=== PATIENT | male | born 1940 | race Caucasian/White ===

== ENCOUNTER 2019-01-04 05:56 | Inpatient (IN) ==
[2019-01-04] MEDS ORDERED: 0.9 % Sodium Chloride 1,000 ML IVC SCH (08:00)
[2019-01-04] MEDS ORDERED: Morphine Sulfate Oral CONC 10 MG/0.5 ML ORAL.SYG SL PRN (08:00)
[2019-01-04] MEDS ORDERED: Ondansetron 4 MG/2 ML VIAL IVP PRN (08:00)
--- NOTE | 2019-01-04 08:54 | Anesthesia Evaluation PreOp ---
Date of Encounter: 01/04/19 Time of Encounter: 11:47 - Past History Planned Operation: Lap. 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 HX Other Medical History: Thyroid (Hypo) Anesthesia History: No Prior Anesthetic Complications, Past Anesthesia (hernia) Alcohol Use: none Drug use: none Medications and Allergies Cholecalciferol (D-3) [Vitamin D] 5,000 unit PO DAILY 03/14/16 [History] Levothyroxine [Synthroid] 100 mcg PO 0630 03/14/16 [History] Multivitamin [Multi-Day Vitamins] 1 each PO DAILY 03/14/16 [History] Allergy/AdvReac Type Severity Reaction Status Date / Time Penicillins [PCN] Allergy See Verified 01/04/19 04:27 Comments Sulfa (Sulfonamide Allergy See Verified 01/04/19 04:27 Antibiotics) Comments - Meds/Allergy Pre-op Review Medications Reviewed: Yes Allergies Reviewed: Yes Beta Blockers on Current Med List: No Anesthesia Results - Labs Laboratory Tests 01/04/19 01/04/19 01/04/19 04:54 04:54 04:54 WBC 8.4 Hgb 13.0 Hct 38.5 INR 1.1 Sodium 138 Potassium 3.8 Chloride 104 Carbon Dioxide 25 BUN 22 Creatinine 1.17 - Imaging EKG: report reviewed (NSR) Anesthesia Exam Vital Signs/O2 Sat, Most Current Temp Pulse Resp BP Pulse Ox 97.3 F L 47 16 130/58 95 01/04/19 07:28 01/04/19 07:28 01/04/19 07:28 01/04/19 07:28 01/04/19 07:28 NPO (# of Hours): > 8 hrs Pain Scale: 0 Pain Scale Used: Numeric (1 - 10) - HEENT Pupil (Motor): Pupils equal, EOMI Mallampati: III Teeth: Normal Oral Opening: Greater than 3 - HOTEL BAGGAGE HANDLER LOC: Oriented HOTEL BAGGAGE HANDLER Motor: Normal RUE, Normal LUE, Normal RLE, Normal LLE, Normal Face HOTEL BAGGAGE HAND[employer]ER Sensory: Normal: RUE, LUE, RLE, LLE, Face - Cardiac Rhythm: Regular Murmur: None JVD: No Carotid Bruit: No - Pulmonary Breath Sounds: bilateral Clear Respiratory Effort: Symmetrical Anesthesia Assess/Plan ASA Score: 2 Level of consciousness: Cooperative, Oriented, Tranquil Anesthetic Plan: General Autologous Blood: Yes Monitoring Plan: Standard Monitors Recovery Plan: PACU
[2019-01-04] MEDS ORDERED: Pantoprazole 40 MG VIAL IVP SCH (09:00)
[2019-01-04] MEDS ORDERED: *HR* Propofol 200 MG/20 ML VIAL IVP ONE (10:20)
[2019-01-04] MEDS ORDERED: *HR* FentaNYL (PF) 100 MCG/2 ML VIAL ONE (10:20)
[2019-01-04] MEDS ORDERED: Ondansetron 4 MG/2 ML VIAL ONE (10:22)
[2019-01-04] MEDS ORDERED: *HR* Rocuronium Bromide 50 MG/5 ML VIAL ONE (10:22)
[2019-01-04] MEDS ORDERED: Lidocaine HCL 4 ML Topical Solution (Laryng-O-Jet Kit Sterile Pak) TP ONE (10:22)
[2019-01-04] MEDS ORDERED: Lidocaine -MPF 2% 2 ML VIAL ONE (10:22)
--- NOTE | 2019-01-04 10:37 | Acute Care Surgery H&P ---
Date of Encounter: 01/04/19 Time of Encounter: 10:37 Assessment and Plan (1) Biliary colic Current Visit: Yes Status: Acute The assessment and plan as outlined above was discussed with the patient and/or family members who expressed understanding and agreement. All questions were answered. I explained to the patient and family members that I personally reviewed the CT scan images and report. I think that he is having intractable pain secondary to biliary colic and I think it would be appropriate to proceed with a laparoscopic cholecystectomy. Risks and benefits have been discussed with the patient and family and they agree to the above plan. History of Present Illness Chief complaint: Right upper abdominal pain HPI: Mr. Mueller is a 78 year old male past medical history significant for hypothyroidism and allergies who states that yesterday he had the onset of right upper quadrant abdominal pain seemed to radiate to the epigastrium. He currently describes his pain as a severe dull pain that is radiating neck and forth between the epigastrium and right upper flank. As the did have nausea but denies any vomiting and he denies any history diarrhea or constipation. On average he has a bowel movement every other day and his last bowel movement was yesterday. Because of the significant and progressive abdominal pain he presented himself to [facility] emergency room for evaluation. A CT scan of the abdomen and pelvis was performed which demonstrated a distended gallbladder with gallstones but no pericholecystic fluid. He describes the pain currently as persistent in nature. Past Med Surg Social Fam HX - Past Medical History Medical history: thyroid disease Additional medical history: ENVIROMENTAL ALLERGIES Psychiatric history: no psych history - Past Surgical History Surgical History: cataract, herniorrhaphy (Left inguinal, performed by Dr. Skaggs 3 years ago), orthopedic, other (Bilateral knee arthorscopy), other Additional surgical history: SCOPIC SURGERY BOTH KNEES - Social History Smoking Status: Never smoker Smokeless Tobacco Status: No Alcohol use: none Drug use: none - Family History Grandfather Hx Family Cancer: Yes (oral cancer.) Medications and Allergies Cholecalciferol (D-3) [Vitamin D] 5,000 unit PO DAILY 03/14/16 [History] Levothyroxine [Synthroid] 100 mcg PO 0630 03/14/16 [History] Multivitamin [Multi-Day Vitamins] 1 each PO DAILY 03/14/16 [History] Allergy/AdvReac Type Severity Reaction Status Date / Time Penicillins [PCN] Allergy See Verified 01/04/19 04:27 Comments Sulfa (Sulfonamide Allergy See Verified 01/04/19 04:27 Antibiotics) Comments Review of Systems All systems PM: reviewed and no additional remarkable complaints except as st ated All systems PM: The remainder of the systems were reviewed and are negative General Surgery Exam Initial Vital Signs Temp Pulse Resp BP Pulse Ox 97.3 F L 47 16 130/58 95 01/04/19 07:28 01/04/19 07:28 01/04/19 07:28 01/04/19 07:28 01/04/19 07:28 - General physical appearance moderate pain - Eyes PERRL, normal ocular movement - Respiratory normal expansion, normal respiratory effort, clear to auscultation - Cardiovascular Cardiovascular exam: Present: RRR, no murmurs/rubs/gallops - Abdomen Abdomen general surgery: Present: bowel sounds present, soft, tender (Tenderness is noted in the bilateral upper quadrant but his most significant pain is located at the epigastrium and right upper quadrant. No palpable masses) - Neurologic Present: CN 2-12 grossly intact - Musculoskeletal Present: other (No clubbing, cyanosis, or edema) - Psychiatric Psychiatric general surgery: Present: A&Ox3, oriented to person, oriented to place, oriented to time Results - Labs All other labs normal. - Imaging CT scan - abdomen: report reviewed, image reviewed (I personally reviewed the CT scan images and report. There is a distended gallbladder with gallstones but no free air or free fluid. No abscesses identified. Colonic diverticulosis also identified.)
[2019-01-04] MEDS ORDERED: Bupivacaine/EPI 1:200k 0.5%PF 30 ML VIAL ONE (11:28)
[2019-01-04] MEDS ORDERED: Bupivacaine/EPI 1:200k 0.25%PF 30 ML VIAL ONE (11:29)
[2019-01-04] MEDS ORDERED: Ondansetron 4 MG/2 ML VIAL IVP ONE (11:37)
[2019-01-04] MEDS ORDERED: *HR* Promethazine 25 MG/ML VIAL IVP PRN (11:37)
[2019-01-04] MEDS ORDERED: *HR* HYDROmorphone (PF) 1 MG/ML SYRINGE IVP PRN (11:37)
[2019-01-04] MEDS ORDERED: *HR* OxyCODONE Immed Rel 5 MG TABLET PO PRN (11:37)
[2019-01-04] MEDS ORDERED: *HR* Labetalol 20 MG/4 ML SYRINGE IVP PRN (11:37)
[2019-01-04] MEDS ORDERED: Acetaminophen IV 1,000 MG/100 ML INFUS..BTL ONE (11:54)
[2019-01-04] MEDS ORDERED: levoFLOXacin 500 MG/100 ML 500 MG/100 ML BAG IVPB ONE (11:54)
[2019-01-04] MEDS ORDERED: MetroNIDAZOLE 500 MG/100 ML 500 MG/100 ML BAG IVPB ONE (11:54)
[2019-01-04] MEDS ORDERED: EPHEDrine 50 MG/ML VIAL ONE (12:20)
[2019-01-04] MEDS ORDERED: *HR* PHENYLEPHRINE 1,000 MCG/10 ML SYRINGE IVP ONE (12:24)
[2019-01-04] MEDS ORDERED: Dexamethasone 4 MG/ML VIAL ONE (12:26)
--- NOTE | 2019-01-04 12:48 | Operative Note ---
Date of procedure: 01/04/19 Pre-op diagnosis: Biliary colic Post-op diagnosis: other (Acute cholecystitis) Procedure: Laparoscopic cholecystectomy Anesthesia: BELTRAN Surgeon: Joshua Russ Was there an event marketing assistant present: No Estimated blood loss (cc): 25 Specimen: gallbladder and contents Condition: stable Disposition: PACU Procedure in Detail: Date of surgery: 01/04/19 After properly identifying the patient, the patient was brought to the operating room and placed in the supine position. After proper IV sedation was achieved followed by general endotracheal intubation, the patient's abdomen was prepped and draped in normal sterile fashion. A timeout was performed noting the patient's name and type of procedure to be performed. Half percent Marcaine solution was used to infiltrate the epidermal, dermal, and subcutaneous tissue just above the level of the umbilicus. An 11 blade scalpel was used to make an incision in this area down to the rectus fascia into the abdomen was entered. A 12 mm port was placed in the incision and the abdomen was insufflated with carbon dioxide. A laparoscopic camera was placed to the port which showed no injury to the intra-abdominal organs upon entry. A subxiphoid 5 mm port and a right subcostal margin 5 mm port were then placed under direct camera visualization after both of these areas were first infiltrated with half percent Marcaine. The patient was placed in a reverse Trendelenburg position and the gallbladder was visualized which demonstrated a distended and mildly erythematous gallbladder consistent with acute cholecystitis. A laparoscopic needle decompression was used to withdraw approximately 120 mL of lightly bilious tinged fluid. The gallbladder was then retracted superiorly with a nontraumatic grasper. Some omental adhesions were dissected with Bovie cauterization blunt dissection. Some mildly inflamed lymphatic tissue were carefully dissected away from the infundibulum and cystic duct with blunt dissection. The cystic duct and cystic artery were then further isolated, clipped with laparoscopic clips, and incised laparoscopic scissors. The gallbladder was carefully dissected off the gallbladder fossa with Bovie cauterization while Bovie cauterization was used to maintain hemostasis. Once the gallbladder was dissected free it was removed from the abdomen via an Endobag. Reinspection of the right upper quadrant demonstrated maintenance of hemostasis and the right upper quadrant was copiously irrigated with normal saline solution. All ports are then removed from the abdomen after the abdomen was desufflated. The rectus fascia for the supraumbilical incision was reapproximated with a [id number] 0 Vicryl suture. The subcutaneous tissue was reapproximated with a 3-0 Vicryl suture and the epidermal and dermal layers for the remaining incisions were closed with 4-0 Monocryl sutures. Needle, sponge, and ischemic counts were correct 2 and the incisions were covered with Steri-Strips and Band-Aids. The patient was aroused from IV sedation, extubated in the operating room without complication, and transported to the recovery room in stable condition.
[2019-01-04] MEDS ORDERED: Ringers Solution, Lactated 1,000 ML ONE (13:10)
--- NOTE | 2019-01-04 13:32 | Anesthesia Evaluation Post Op ---
Date of Encounter: 01/04/19 Time of Encounter: 13:31 - Vital Signs Vital Signs: Vital Signs/O2 Sat, Most Current Temp Pulse Resp BP Pulse Ox 98.4 F 93 17 140/71 97 01/04/19 13:01/04/19 13:01/04/19 13:01/04/19 13:01/04/19 13:21 - Lungs Lungs: Clear Ascult./Percussion - Airway Airway: Non-obstructed - Cardiovascular Regular Rate - Mental Status Mental Status: Alert & Oriented, Answers Appropriately - Pain Pain Scale: 0 Pain Scale used: Numeric (1 - 10) - Nausea Vomiting Nausea Vomiting: Not Present - Hydration Hydration: Ice chips, Has not voided - Discharge PostOp Status: Transfer Patient to floor
[2019-01-04] MEDS: 0.9 % Sodium Chloride 1,000 ML IVC SCH (14:04)
[2019-01-04] MEDS: Morphine Sulfate Oral CONC 10 MG/0.5 ML ORAL.SYG SL PRN ×2 (15:00→21:01)
[2019-01-04] MEDS: MetroNIDAZOLE 500 MG/100 ML 500 MG/100 ML BAG IVPB SCH ×2 (15:01→23:20)
[2019-01-05] MEDS: 0.9 % Sodium Chloride 1,000 ML IVC SCH (03:57)
[2019-01-05] MEDS: Pantoprazole 40 MG VIAL IVP SCH (07:45)
[2019-01-05] MEDS: Morphine Sulfate Oral CONC 10 MG/0.5 ML ORAL.SYG SL PRN (07:45)
--- NOTE | 2019-01-05 11:38 | AcuteCareSurgery Progress Note ---
<DanyelMahnaz Anita - Last Filed: 01/05/19 11:36> Date of Encounter: 01/05/19 Time of Encounter: 07:45 - Assessment and Plan (1) Biliary colic Current Visit: Yes Status: Acute Date of procedure: 01/04/19 Pre-op diagnosis: Biliary colic Post-op diagnosis: other (Acute cholecystitis) Procedure: Laparoscopic cholecystectomy Anesthesia: GETA Surgeon: Joshua Russ POD #1 as above. He reports he is sore and is not able to get OOB accordingly. He stated difficulty getting up to urinate (aprox 100 ml dark urine noted in urinal). His VSS and he is afebrile. He states he lives alone and has no one who can help him during the day. We will consult PT/OT for mobilization and d/c planning. Plan: Continue supportive care and discomfort management while awaiting full return of bowel function add ice pack add scheduled Ofirmev continue PRN pain medication bladder scan Stat, bedside RN to call [employer] CONSULTANT with results Continue G.I. and DVT prophylaxis Incentive spirometry 10 times every hour while awake Out of bed to chair TID, do not offer meal trays while in the bed PT/OT and ambulate Activity as tolerated Apply ice 20 minutes on 20 minutes off as needed continue IV antibiotics stop IV fluids regular diet DC planning in the next 24 to 48 hours pending above (2) Weakness Current Visit: Yes Status: Acute see above Subjective Patient reports: still having pain, no flatus, no bowel movement, afebrile Narrative: reports difficulty urinating and getting out of bed because of pain. Lives alone. States he doesn't have anyone who can help him throughout the day. Objective Vital Signs - Last 8 Hours Temp Pulse Resp BP Pulse Ox 01/05/19 10:54 98.5 F 58 22 121/64 95 01/05/19 07:09 98.4 F 60 16 113/57 94 01/05/19 03:46 98.0 F 60 15 98/53 93 Intake and Output 01/04/19 01/05/19 01/05/19 23:59 07:59 15:59 Intake Total 100 / 320 100 / 220 120 / 220 Output Total 300 / 400 100 / 400 Balance 100 / -105 -200 / -180 20 / -180 Intake: IV Fluids 100 / 200 100 / 100 Flagyl Premix 500 MG/100 ML 500 100 / 100 100 / 100 mg In 100 ml @ 100 mls/hr IVPB Q8HR [facility] Rx#:[id number] Oral 120 / 120 Output: Urine 300 / 400 100 / 400 Other: Meal Breakfast Percent of Meal Consumed 20% Weight 70.4 kg Patient Weight 01/05/19 23:59 Weight 70.4 kg - General physical appearance moderate distress, moderate pain - ENT atraumatic, normocephalic - Neck Neck exam: trachea midline - Respiratory normal expansion, normal respiratory effort, clear to auscultation - Cardiovascular Cardiovascular exam: Present: RRR - Abdomen Abdomen: Present: soft, distended, tender (expected postoperative). Absent: bowel sounds present Hernia: none - Incision Incision: Present: clean and dry, intact - Integumentary no rash - Neurologic normal sensation - Musculoskeletal other (Guarded posture) - Psychiatric oriented to time, oriented to person, oriented to place Consult Discharge Plan - Plan Referrals: Danyel Ramos DO [Primary Care Provider] - <Eugene Glass - Last Filed: 01/05/19 13:57> Date of Encounter: 01/05/19 Objective Vital Signs - Last 8 Hours Temp Pulse Resp BP Pulse Ox 01/05/19 10:54 98.5 F 58 22 121/64 95 01/05/19 07:09 98.4 F 60 16 113/57 94 Intake and Output 01/04/19 01/05/19 01/05/19 23:59 07:59 15:59 Intake Total 100 / 320 100 / 340 240 / 340 Output Total 300 / 1000 700 / 1000 Balance 100 / -105 -200 / -660 -460 / -660 Intake: IV Fluids 100 / 200 100 / 100 Flagyl Premix 500 MG/100 ML 500 100 / 100 100 / 100 mg In 100 ml @ 100 mls/hr IVPB Q8HR [facility] Rx#:[id number] Oral 240 / 240 Output: Urine 300 / 1000 700 / 1000 Other: Meal Lunch Percent of Meal Consumed 5% # Voids 2 Weight 70.4 kg Patient Weight 01/05/19 23:59 Weight 70.4 kg - Attending Attestation I have personally performed a face to face evaluation on this patient. I have reviewed and agree with the care plan. History and Exam by me shows: The patient is seen and evaluated on morning rounds with the acute care surgery team. He had laparoscopic cholecystectomy and feels poorly today and feels like he is unable to ambulate adequately. We will plan physical therapy and occupat ional therapy evaluation. It is noted that he has a markedly dilated bladder with greater then 650 mL of urine. Flomax was started. Eugene Glass MD FACS
[2019-01-05] MEDS: Acetaminophen IV 1,000 MG/100 ML INFUS..BTL IVPB SCH ×2 (12:55→17:17)
[2019-01-06] MEDS: Acetaminophen IV 1,000 MG/100 ML INFUS..BTL IVPB SCH ×5 (00:52→23:35)
[2019-01-06 05:18] LABS: Basophils % 0.2 %; Eosinophils % 0.1 %; Hematocrit 38.9 % (37.5-50.1); Hemoglobin 12.7 g/dL (12.9-16.9); Immature Granulocytes % 0.6 % (0-4); Lymphocytes # 1.3 K/mcL (0.6-4.6); Lymphocytes % 8.3 %; Mean Corpuscular HGB Conc 32.6 g/dL (31.6-35.5); Mean Corpuscular Hemoglobin 31.1 pg (28.0-33.3); Mean Corpuscular Volume 95.1 fL (83.0-100.0); Monocytes # 1.5 K/mcL (0.0-1.3); Monocytes % 9.5 %; Neutrophils # 12.7 K/mcL (1.6-8.9); Platelet Count 278 K/mcL (140-400); Red Blood Count 4.09 M/mcL (4.19-5.50); Red Cell Distribution Width 14.1 % (11.5-14.5); Segmented Neutrophils % 81.3 %; White Blood Count 15.6 K/mcL (4.3-11.1)
[2019-01-06 05:42] LABS: BUN/Creatinine Ratio 17 (6-26); Blood Urea Nitrogen 18 mg/dL (8-23); Calcium 8.8 mg/dL (8.6-10.3); Carbon Dioxide 25 mEq/L (23-29); Chloride 104 mEq/L (98-107); Glucose 119 mg/dL (70-105); Osmolality,Calculated 283 (280-300); Potassium 3.8 mEq/L (3.5-5.1); Sodium 135 mEq/L (136-145); eGFR For African Americans > 60 (> 60); eGFR For Non-African Americans > 60 (> 60)
[2019-01-06] MEDS: Pantoprazole 40 MG VIAL IVP SCH (08:04)
[2019-01-06] MEDS ORDERED: Simethicone 80 MG TAB.CHEW PO STA (09:15)
[2019-01-06] MEDS: Metoclopramide 10 MG/2 ML VIAL IVP SCH ×3 (10:55→22:11)
--- NOTE | 2019-01-06 11:22 | AcuteCareSurgery Progress Note ---
<Mahnaz Montaño - Last Filed: 01/06/19 11:18> Date of Encounter: 01/06/19 Time of Encounter: 11:18 - Assessment and Plan (1) Biliary colic Current Visit: Yes Status: Acute Date of procedure: 01/04/19 Pre-op diagnosis: Biliary colic Post-op diagnosis: other (Acute cholecystitis) Procedure: Laparoscopic cholecystectomy Anesthesia: GETA Surgeon: Joshua Russ POD #2 as above. He reports abdominal distention and feeling uncomfortable but states the pain he had yesterday has resolved. He is sitting up right in the chair and ate approximately 1/4 of his breakfast stating he feels to bloated to eat any further. Acute abdominal series obtained and notes a moderate ileus (see below). His daughter is at bedside and encourages the patient to be active and uses incentive spirometer. Patient is reluctant to ambulate or use his incentive spirometer stating he just feels like he cannot do it. He is noted to have had acute urinary retention and had a Gonzales catheter placed. He states his abdominal discomfort is resolved. Plan: Continue supportive care and discomfort management while awaiting full return of bowel function ice pack scheduled Ofirmev continue PRN pain medication Continue gonzales Continue G.I. and DVT prophylaxis Incentive spirometry 10 times every hour while awake Out of bed to chair TID, do not offer meal trays while in the bed PT/OT and ambulate Activity as tolerated Apply ice 20 minutes on 20 minutes off as needed continue IV antibiotics CLD DC planning in the next 24 to 48 hours pending above (2) Postoperative ileus Current Visit: Yes Status: Acute Moderate POI noted on imaging. Pt is with abd distention, no bowel sounds, and frequent burping. No vomiting Decrease to clear liquid diet with protein supplement; If vomiting occurs, place NG Add reglan and simethicone ambulate OOB to chair TID Will resume IVF while decreased po intake (3) Weakness Current Visit: Yes Status: Acute see above (4) Acute urinary retention Current Visit: Yes Status: Acute Continue Gonzales catheter continue Flomax follow-up with urology as outpatient Objective Vital Signs - Last 8 Hours Temp Pulse Resp BP Pulse Ox 01/06/19 06:34 98.1 F 77 16 146/75 90 01/06/19 04:08 97.8 F 64 15 135/68 93 Intake and Output 01/05/19 01/06/19 01/06/19 23:59 07:59 15:59 Intake Total 100 / 540 100 / 100 Output Total 300 / 1300 600 / 600 Balance -200 / -760 -500 / -500 Intake: IV Fluids 100 / 300 100 / 100 Ofirmev 1,000 mg/100 ml 1,000 100 / 200 100 / 100 mg In 100 ml @ 400 mls/hr IVPB Q6HR [facility] Rx#:[id number] Output: Urine 300 / 1300 Catheter 600 / 600 Other: # Voids 1 Weight 70.1 kg Patient Weight 01/06/19 23:59 Weight 70.1 kg - Labs 01/06/19 04:38 01/06/19 04:38 Diabetes panel 01/06/19 Range/Units 04:38 Sodium 135 L (136-145) mEq/L Potassium 3.8 (3.5-5.1) mEq/L Chloride 104 (98-107) mEq/L Carbon Dioxide 25 (23-29) mEq/L BUN 18 (8-23) mg/dL Creatinine 1.06 (0.70-1.30) mg/dL Glucose 119 H (70-105) mg/dL Calcium 8.8 (8.6-10.3) mg/dL Calcium panel 01/06/19 Range/Units 04:38 Calcium 8.8 (8.6-10.3) mg/dL Pituitary panel 01/06/19 Range/Units 04:38 Sodium 135 L (136-145) mEq/L Potassium 3.8 (3.5-5.1) mEq/L Chloride 104 (98-107) mEq/L Carbon Dioxide 25 (23-29) mEq/L BUN 18 (8-23) mg/dL Creatinine 1.06 (0.70-1.30) mg/dL Glucose 119 H (70-105) mg/dL Calcium 8.8 (8.6-10.3) mg/dL Adrenal panel 01/06/19 Range/Units 04:38 Sodium 135 L (136-145) mEq/L Potassium 3.8 (3.5-5.1) mEq/L Chloride 104 (98-107) mEq/L Carbon Dioxide 25 (23-29) mEq/L BUN 18 (8-23) mg/dL Creatinine 1.06 (0.70-1.30) mg/dL Glucose 119 H (70-105) mg/dL Calcium 8.8 (8.6-10.3) mg/dL Consult Discharge Plan - Plan Referrals: [facility] [Provider Group] (Acute urinary retention; Gonzales in place) Danyel Ramos DO [Primary Care Provider] - (Appointment has been requested ) <Gila Frost - Last Filed: 01/06/19 11:39> Date of Encounter: 01/06/19 Objective Vital Signs - Last 8 Hours Temp Pulse Resp BP Pulse Ox 01/06/19 06:34 98.1 F 77 16 146/75 90 01/06/19 04:08 97.8 F 64 15 135/68 93 Intake and Output 01/05/19 01/06/19 01/06/19 23:59 07:59 15:59 Intake Total 100 / 540 100 / 100 Output Total 300 / 1300 600 / 600 Balance -200 / -760 -500 / -500 Intake: IV Fluids 100 / 300 100 / 100 Ofirmev 1,000 mg/100 ml 1,000 100 / 200 100 / 100 mg In 100 ml @ 400 mls/hr IVPB Q6HR [facility] Rx#:[id number] Output: Urine 300 / 1300 Catheter 600 / 600 Other: # Voids 1 Weight 70.1 kg Patient Weight 01/06/19 23:59 Weight 70.1 kg - Labs 01/06/19 04:38 01/06/19 04:38 Diabetes panel 01/06/19 Range/Units 04:38 Sodium 135 L (136-145) mEq/L Potassium 3.8 (3.5-5.1) mEq/L Chloride 104 (98-107) mEq/L Carbon Dioxide 25 (23-29) mEq/L BUN 18 (8-23) mg/dL Creatinine 1.06 (0.70-1.30) mg/dL Glucose 119 H (70-105) mg/dL Calcium 8.8 (8.6-10.3) mg/dL Calcium panel 01/06/19 Range/Units 04:38 Calcium 8.8 (8.6-10.3) mg/dL Pituitary panel 01/06/19 Range/Units 04:38 Sodium 135 L (136-145) mEq/L Potassium 3.8 (3.5-5.1) mEq/L Chloride 104 (98-107) mEq/L Carbon Dioxide 25 (23-29) mEq/L BUN 18 (8-23) mg/dL Creatinine 1.06 (0.70-1.30) mg/dL Glucose 119 H (70-105) mg/dL Calcium 8.8 (8.6-10.3) mg/dL Adrenal panel 01/06/19 Range/Units 04:38 Sodium 135 L (136-145) mEq/L Potassium 3.8 (3.5-5.1) mEq/L Chloride 104 (98-107) mEq/L Carbon Dioxide 25 (23-29) mEq/L BUN 18 (8-23) mg/dL Creatinine 1.06 (0.70-1.30) mg/dL Glucose 119 H (70-105) mg/dL Calcium 8.8 (8.6-10.3) mg/dL - Attending Attestation I examined this patient and my medical decision-making was reviewed with the BEHAVIORAL HEALTH SPECIALIST. I agree with the documented findings, disposition and treatment plan as described to the extent set forth below. Post-op Lap jason. Pt has persistent post-op ileus. Encourage increased acti vity. Will continue to treat supportively while awaiting bowel function.
[2019-01-06] MEDS ORDERED: *HR* Promethazine 25 MG/ML VIAL IVP PRN (11:24)
[2019-01-06] MEDS ORDERED: 0.9 % Sodium Chloride 1,000 ML IVC SCH (11:30)
[2019-01-06] MEDS: *HR* Heparin 5,000 UNIT/ML VIAL SQ SCH (18:02)
--- NOTE | 2019-01-06 18:40 | Acute Care Surgery Event Note ---
Date of Encounter: 01/06/19 Time of Encounter: 06:25 CTSP per nursing for 1) nausea and large emesis and 2) slurred speech. Pt exam is unremarkable. Will ask hospitalist to consult regarding neurologic complaint and obtain head CT without contrast. Also, will make NPO, start Reglan IV and place NGT to LIWS.
--- NOTE | 2019-01-07 00:09 | Internal Medicine Consult Note ---
Date of Encounter: 01/06/19 Time of Encounter: 22:30 - Assessment and Plan (1) Stroke-like symptoms Current Visit: Yes Status: Acute Assessment and plan: Acute CVA-type sx concerning for possible stroke. Effects of IVP Phenergan versus neurological basis. On exam, patient has no one-sided weakness, focal deficits, or pronator drift. Speech mildly slurred. Stat CT of the head/brain without contrast showed no acute intracranial abnormality. Stat MRI of the head/brain w/o contrast also showed no acute abnormality, specifically there is no acute infarct. Family concerned that these sx were exacerbated by pts. stress level regarding recent surgery and abdominal pain. Family is hesitant for pt. to have anti-anxiolytics d/t the fact that he takes no pain or anxiety medications historically. Will add low-dose of Ativan only if warranted and discussed w/family. Consider adding Neurology consult if pts. sx persist or worsen. Patient is high risk for further morbidity and complications d/t post-surgical status, neurologic changes requiring advanced imaging and testing to r/o neurologic basis, current leukocytosis, current nausea and vomiting requiring NG tube and nothing by mouth status, postoperative ileus, acute weakness, and acute urinary retention. Inpatient. (2) Postoperative ileus Current Visit: Yes Status: Acute Assessment and plan: Acute abdominal ileus according to 2 view x-ray of the abdomen on 01/06. Patient was on clear liquid diet but continued having N/V. NPO for now w/advance as tolerated. 0.9 IV fluids running at 125/hr currently. Consider CT of the abdomen/pelvis if sx persist or worsen. Monitor I&O. (3) Hypokalemia due to excessive gastrointestinal loss of potassium Current Visit: Yes Status: Acute Assessment and plan: Acute hypokalemia w/potassium of 3.4 likely d/t gastrointestinal loss. 20 mEq K rider with lidocaine ordered. Cardiac monitoring. EKG ordered. Monitor patient, VS, and f/u labs. Control N/V w/ Zofran and Reglan. (4) Nausea & vomiting Current Visit: Yes Status: Acute Assessment and plan: Acute nausea and vomiting s/p laparoscopic cholecystectomy. Clear liquid diet DCd and NPO ordered w/advance as tolerated. Phenergan DCd d/t pts. AMS/CVA-type sx post-administration. Phenergan added to pts. allergy list. Zofran and Reglan ordered. Monitor I&O. Pt. receiving 0.9 IV fluids @ 125/hr. Qualifiers: Vomiting type: cyclical vomiting Vomiting Intractability: non-intractable Qualified Code(s): G43.A0 - Cyclical vomiting, not intractable (5) Abdominal pain Current Visit: Yes Status: Acute Assessment and plan: Acute abdominal pain in epigastric area. S/p laparoscopic cholecystectomy on 01/04. 2V XR of the abdomen on 01/06 shows intraperitoneal free air consistent with history of recent abdominal surgery. Status post cholecystectomy. Moderately distended loops of small bowel with some air in the colon as well. Findings suggest a moderate ileus more likely than a distal small bowel ob struction. NG tube placed for N/V. NPO now w/advance as tolerated. Patient is opioid naive and family would like non-opioid medications trialed first. Monitor I&O. Qualifiers: Abdominal location: epigastric Qualified Code(s): R10.13 - Epigastric pain (6) Leukocytosis Current Visit: Yes Status: Acute Assessment and plan: Acute leukocytosis of unknown etiology: post-surgical reactive versus possible infective. Respiratory infection panel negative. U/A w/reflex micro and culture. Strep pneumoniae and legionella antigens ordered. Blood cultures x2 ordered. Monitor pt. and f/u labs closely for signs of increasing infection/sepsis criteria. Lactic acid 0.7. Qualifiers: Leukocytosis type: other Qualified Code(s): D72.828 - Other elevated white blood cell count (7) Weakness Current Visit: Yes Status: Acute Assessment and plan: Acute weakness, likely d/t poor intake in combination w/nausea and vomiting. Patient receiving 0.9 IV fluids @ 125/hr. Clear liquids DCd and NPO d/t recurrent N/V. Will advance diet as tolerated. Falls/safety precautions and up with assist. Nutrition consult for PO supplementation. (8) Acute urinary retention Current Visit: Yes Status: Acute Assessment and plan: Acute urinary retention post-surgery. Mosqueda catheter inserted for retention. Monitor I&O. (9) Thyroid disease Current Visit: Yes Status: Chronic Assessment and plan: Hx of chronic thyroid disease. Will check TSH and Free T4 in a.m. labs. Continue pts. Synthroid. (10) DVT prophylaxis Current Visit: Yes Status: Acute Assessment and plan: Heparin SQ Q12 HR for DVT prophylaxis. Monitor pt. for signs of bleeding. - Time Spent With Patient Total time spent is greater than 50% in coordination of care (as documented) at patient's floor/unit and/or counseling patient: Greater than 35 minutes Internal Medicine - CN: HPI - Data of Consult Patient: new to practice Consult date: 01/06/19 Requesting Physician: Joshua Russ MD - Consult Narrative Reason for consult: CVA-type symptoms History of present illness: Mr. Mueller is a 78 year old male who went to [facility] [place] ED on 01/04 d/t abdominal pain. Patient reports that the pain began late in the evening the night before and worsened. Patient states that the pain was in the mid epigastric area after beginning in his back w/radiation to his abdomen. Associated sx: nausea and vomiting. Patient and family report copious amount of emesis this evening at approximately 19:00 which consisted of green bile and food remnants. Patient is s/p laparoscopic cholecystectomy on 01/04. Hospitalist group was consulted d/t pts. CVA-type sx after receiving IVP Phenergan. On examination, patient reports that he is very weak and has not had much intake (fluids or food) in recent days d/t his nausea. No one-sided weakness or deficits on examination, no facial droop, or pronator drift. Family concerned regarding slurred speech. Pt. to be worked up for CVA r/o. Patient denies recent illness, fever, chills, sick contacts, chest pain, shortness of breath, changes in vision, headache, unusual bleeding, diarrhea, constipation, cough, chest congestion, numbness, tingling dizziness, lightheadedness, pre-syncope, or syncope. Past Med Surg Social Fam HX - Past Medical History Source: patient, old records reviewed, obtained from family Medical history: thyroid disease Additional medical history: ENVIROMENTAL ALLERGIES Psychiatric history: no psych history - Past Surgical History Surgical History: cataract, herniorrhaphy (Left inguinal, performed by Dr. Skaggs 3 years ago), orthopedic, other (Bilateral knee arthorscopy), other Additional surgical history: SCOPIC SURGERY BOTH KNEES - Social History Smoking Status: Never smoker Smokeless Tobacco Status: No Alcohol use: none Drug use: none Current living situation: Home - Independent Activity Level: Independent ambulation Recent Out of Country Travel Within the Last 8 Weeks: No Exposure or Possible Exposure to Illness During Travel: No - Family History Grandfather Race: Family Member Ethnicity: Non- Living Status: Cause of : Cancer Hx Family Cancer: Yes (Oral cancer) Grandmother Race: Family Member Ethnicity: Non- Living Status: Age at : 95 Cause of : Natural causes Hx Family Medical Disorders: No Father Race: Family Member Ethnicity: Non- Living Status: Cause of : Sepsis following gallbladder surgery Hx Family GI Disorders: Yes (Gallbladder) Mother Race: Family Member Ethnicity: Non- Living Status: Age at : 78 Cause of : Alzheimer's disease Hx Family Neurologic Disorders: Yes (Alzheimer's disease) Brother Race: Family Member Ethnicity: Non- Living Status: Still Living Hx Family GI Disorders: Yes (Gallbladder disease) Sister Race: Family Member Ethnicity: Non- Living Status: Still Living Hx Family Medical Disorders: No - Constitutional Constitutional: as per HPI, fatigue, weakness - EENT Eyes: as per HPI Ears: as per HPI Nose, mouth and throat: as per HPI - Breasts Breasts: as per HPI - Cardiovascular Cardiovascular ROS IM: as per HPI - Respiratory Respiratory: as per HPI - Gastrointestinal Gastrointestinal: as per HPI, abdominal pain, nausea, vomiting - Genitourinary Genitourinary ROS male: as per HPI - Musculoskeletal Musculoskeletal ROS IM: as per HPI - Integumentary Integumentary IM: as per HPI - Neurological Neurological ROS: as per HPI, weakness - Psychiatric Psychiatric: as per HPI - Endocrine Endocrine IM: as per HPI - Hematologic/Lymphatic Hematologic/Lymphatic: as per HPI - Allergic/Immunologic Allergic/Immunologic: as per HPI Internal Medicine - CN: Meds Levothyroxine [Synthroid] 100 mcg PO 0630 03/14/16 [History] Cholecalciferol (D-3) [Vitamin D] 5,000 unit PO DAILY 01/05/19 [History] Multivitamin [One Daily Essential] 1 tab PO DAILY 01/05/19 [History] Saccharomyces Boulardii [Florastor] 250 mg PO DAILY 01/05/19 [History] Allergy/AdvReac Type Severity Reaction Status Date / Time Penicillins [PCN] Allergy See Verified 01/04/19 04:27 Comments Sulfa (Sulfonamide Allergy See Verified 01/04/19 04:27 Antibiotics) Comments Phenergan AdvReac Weakness Uncoded 01/07/19 02:21 Hospitalist - CN: Exam - Constitutional Vitals: Temp Pulse Resp BP Pulse Ox 98.3 F 70 16 127/73 93 01/06/19 22:59 01/06/19 22:59 01/06/19 22:59 01/06/19 22:59 01/06/19 22:59 General appearance IM: Present: cooperative, A&O X 3, pleasant, severe distress (Abdominal pain/Nausea/Vomiting), underweight, answers questions appropriately Exam: Patient examined at bedside with family present. Patient reported severe generalized weakness with poor intake and ongoing nausea/vomiting. Patient also reporting abdominal pain. Pt. denies any other sx or complaints on exam. VS: 98.3F temp, HR 70, RR 16, BP 127/73, SPO2 93% on room air. - Head Head exam: Present: atraumatic - Eye Eye exam: Present: PERRL, conjuntiva pink, sclera anicteric Pupils: Present: normal accommodation, PERRL - ENT ENT exam: Present: normal exam - Neck Neck exam general surgery: Present: normal inspection, supple, trachea midline - Respiratory Respiratory exam: Present: CTAB - Cardiovascular Cardiovascular exam IM: Present: RRR, +S1, +S2 - GI/Abdominal GI/Abdominal exam IM: Present: distended, firm, hypoactive bowel sounds, tenderness, no peritoneal signs - Rectal Rectal exam: Present: deferred - Additional comments: exam deferred. - Extremities Exam Extremities exam IM: Present: warm, radial pulses palpable and symmetrical - Back Exam Back exam: Present: normal inspection - Neurological Exam Neurological exam: Present: alert, CN II-XII intact, oriented X3, strengths equal and symetr throughout - Expanded Neurological Exam Patient oriented to: Present: person, place, time - Psychiatric Psychiatric exam: Present: anxious - Skin Skin exam IM: Present: dry, intact Internal Medicine - CN: Reslt - Labs CBC & Chem 7: 01/07/19 01:22 01/07/19 01:22 Labs: Short CBC 01/06/19 Range/Units 04:38 WBC 15.6 H D (4.3-11.1) K/mcL Hgb 12.7 L (12.9-16.9) g/dL Hct 38.9 (37.5-50.1) % Plt Count 278 (140-400) K/mcL Neutrophils # 12.7 H (1.6-8.9) K/mcL BMP 01/06/19 04:38 Sodium 135 L Potassium 3.8 Chloride 104 Carbon Dioxide 25 BUN 18 Creatinine 1.06 Glucose 119 H Calcium 8.8 - Impressions Impressions Abdomen X-Ray 01/06/19 10:02 IMPRESSION: Intraperitoneal free air consistent with history of recent abdominal surgery. Status post cholecystectomy. Moderately distended loops of small bowel with some air in the colon as well. Findings suggest a moderate ileus more likely than a distal small bowel obstruction. D/ / Conor Eugene MD / Conor Eugene MD Interpreting Provider: Conor Eugene MD Chest X-Ray 01/06/19 10:04 IMPRESSION: Free air under the diaphragm consistent with recent abdominal surgery with history of cholecystectomy. Likely associated bibasilar atelectasis and small bilateral pleural effusions. D/ / 01/06/2019 10:43:45 Conor Eugene MD / mary Interpreting Provider: Conor Eugene MD Head CT 01/06/19 19:52 IMPRESSION: No acute intracranial abnormality. D/ / Lashay Garrett MD / Lashay Garrett MD Interpreting Provider: Lashay Garrett MD Brain MRI 01/06/19 21:41 IMPRESSION: No acute abnormality. Specifically, there is no acute infarct D/ / Alexander Vargas / Alexander Vargas Interpreting Provider: Alexander Vargas - Diagnostic Studies Chest x-ray Additional comments: Impressions Chest X-Ray 01/06/19 10:04 IMPRESSION: Free air under the diaphragm consistent with recent abdominal surgery with history of cholecystectomy. Likely associated bibasilar atelectasis and small bilateral pleural effusions. D/ / 01/06/2019 10:43:45 Conor Eugene MD / mary Interpreting Provider: Conor Eugene MD Abdominal x-ray Additional comments: Impressions Abdomen X-Ray 01/06/19 10:02 IMPRESSION: Intraperitoneal free air consistent with history of recent abdominal surgery. Status post cholecystectomy. Moderately distended loops of small bowel with some air in the colon as well. Findings suggest a moderate ileus more likely than a distal small bowel obstruction. D/ / Conor Eugene MD / Conor Eugene MD Interpreting Provider: Conor Eugene MD CT scan - head Additional comments: Impressions Head CT 01/06/19 19:52 IMPRESSION: No acute intracranial abnormality. D/ / Lashay Garrett MD / Lashay Garrett MD Interpreting Provider: Lashay Garrett MD MRI - head Additional comments: Impressions Brain MRI 01/06/19 21:41 IMPRESSION: No acute abnormality. Specifically, there is no acute infarct D/ / Alexander Vargas / Alexander Vargas Interpreting Provider: Alexander Vargas Consult Discharge Plan - Plan Instructions: Urinary Retention in Men (GEN), Laparoscopic Cholecystectomy (DC), Ileus (GEN) Additional Instructions: General Surgical Discharge Instructions 1. No pushing, pulling, or lifting greater than 15 lbs for 4 weeks. 2. You may remove your dressings and shower beginning today, but no tub baths, soaking, or swimming for 2 weeks. 3. No driving for until cleared by rehab. 4. Apply ice 20 minutes every hour that you are awake to your abdomen and Take ibuprofen every 8 hours for discomfort. If this does not relieve discomfort, you may take the as needed Percocet. Eat a small snack with pain medication as this will help reduce the risk of nausea. Take narcotics as directed. Do not take more narcotics then directed and do not share your narcotics with any other person. Do not drink alcohol while on narcotics. You can take the Zofran/ondansetron if needed for nausea or with a dose of narcotics to prevent nausea. 5. Take stool softeners (Colace) or a water based laxative (Miralax) while taking narcotics. You may hold for loose stools. 6. Report any fevers greater than 100.5F, increase abdominal discomfort, drain age that looks like pus, increased redness or pain at the surgical site, or any vomiting. 7. Report any pain in the calves, shortness of breath, or rapid heartbeat. 8. Follow-up in the office as directed. 9. If you were prescribed antibiotics, do not stop them without talking to your provider. Referrals: [facility] [Provider Group] (Acute urinary retention; Mosqueda in place) Eugene Glass MD [Partnered Physician] - 01/20/19 8:55 am Danyel Ramos DO [Primary Care Provider] - (Appointment has been requested )
[2019-01-07 01:28] LABS: Adenovirus Not Detected (Not Detect); Bordetella Pertussis Not Detected (Not Detect); Chlamydophila pneumoniae Not Detected (Not Detect); Coronavirus 229E Not Detected (Not Detect); Coronavirus HKU1 Not Detected (Not Detect); Coronavirus NL63 Not Detected (Not Detect); Coronavirus OC43 Not Detected (Not Detect); Human Metapneumovirus Not Detected (Not Detect); Human Rhinovirus/Enterovirus Not Detected (Not Detect); Influenza A Subtype 2009 H1 Not Detected (Not Detect); Influenza A Untypeable Not Detected (Not Detect); Influenza B Not Detected (Not Detect); Mycoplasma pneumoniae Not Detected (Not Detect); Parainfluenza Virus 1 Not Detected (Not Detect); Parainfluenza Virus 2 Not Detected (Not Detect); Parainfluenza Virus 3 Not Detected (Not Detect); Parainfluenza Virus 4 Not Detected (Not Detect); Respiratory Syncytial Virus Not Detected (Not Detect)
[2019-01-07 01:43] LABS: Basophils % 0.1 %; Eosinophils % 0.1 %; Hematocrit 40.6 % (37.5-50.1); Hemoglobin 13.6 g/dL (12.9-16.9); Immature Granulocytes % 0.4 % (0-4); Lymphocytes % 7.2 %; Mean Corpuscular HGB Conc 33.5 g/dL (31.6-35.5); Mean Corpuscular Hemoglobin 31.9 pg (28.0-33.3); Mean Corpuscular Volume 95.1 fL (83.0-100.0); Mean Platelet Volume 11.7 fL (9.4-12.4); Monocytes # 1.4 K/mcL (0.0-1.3); Monocytes % 9.5 %; Neutrophils # 11.9 K/mcL (1.6-8.9); Platelet Count 292 K/mcL (140-400); Red Blood Count 4.27 M/mcL (4.19-5.50); Red Cell Distribution Width 13.8 % (11.5-14.5); Segmented Neutrophils % 82.7 %; White Blood Count 14.4 K/mcL (4.3-11.1)
[2019-01-07 01:54] LABS: Alanine Aminotransferase 106 Units/L (7-52); Albumin 3.2 g/dL (3.5-5.7); Albumin/Globulin Ratio 1.3 (1.1-2.2); Alkaline Phosphatase 101 Units/L (34-104); Aspartate Amino Transferase 31 Units/L (13-39); BUN/Creatinine Ratio 18 (6-26); Bilirubin,Total 2.2 mg/dL (0.3-1.0); Blood Urea Nitrogen 17 mg/dL (8-23); Calcium 8.8 mg/dL (8.6-10.3); Carbon Dioxide 22 mEq/L (23-29); Chloride 104 mEq/L (98-107); Globulin 2.5 g/dL (2.4-3.5); Glucose 125 mg/dL (70-105); Osmolality,Calculated 283 (280-300); Potassium 3.4 mEq/L (3.5-5.1); Sodium 135 mEq/L (136-145); Total Protein 5.7 g/dL (6.4-8.9); eGFR For African Americans > 60 (> 60); eGFR For Non-African Americans > 60 (> 60)
[2019-01-07] MEDS: 0.9 % Sodium Chloride 1,000 ML IVC SCH ×4 (02:01→21:26)
[2019-01-07] MEDS ORDERED: Potassium Chloride 20 MEQ, Lidocaine 1% 2 ML in 0.9 % Sodium Chloride 250 ML IVPB ONE (02:34)
[2019-01-07] MEDS: Metoclopramide 10 MG/2 ML VIAL IVP SCH ×4 (03:06→20:33)
[2019-01-07 04:08] LABS: Thyroid Stimulating Hormone 15.538 mcIU/mL (0.340-5.600)
[2019-01-07 05:49] LABS: Bilirubin,Urine Small (Negative); Blood,Urine Large (Negative); Clarity,Urine Turbid (Clear); Color,Urine Dark Yellow (Yellow); Glucose,Urine (UA) Normal (Normal); Ketones,Urine 15 mg/dL (Negative); Leukocyte Esterase,Urine Trace (Negative); Nitrite,Urine Negative (Negative); PH,Urine 5.5 pH Units (5.0-8.0); Protein,Urine 100 mg/dL (Neg-Trace); Specific Gravity,Urine > 1.030 (1.010-1.025); Urobilinogen,Urine Normal (Normal)
[2019-01-07 05:51] LABS: Bacteria,Urine None Seen per hpf (None-Few); Hyaline Casts,Urine Few per lpf (None-Few); RBC,Urine TNTC per hpf (0-3); Squamous Epithelial Cell,Urine Many per lpf (None-Few); WBC,Urine 15-30 per hpf (0-3)
[2019-01-07] MEDS: Acetaminophen IV 1,000 MG/100 ML INFUS..BTL IVPB SCH ×4 (06:04→23:34)
[2019-01-07] MEDS: *HR* Heparin 5,000 UNIT/ML VIAL SQ SCH ×2 (06:04→17:47)
[2019-01-07] MEDS: Ondansetron 4 MG/2 ML VIAL IVP PRN (06:21)
[2019-01-07] MEDS ORDERED: Ondansetron 4 MG/2 ML VIAL IVP ONE (08:51)
[2019-01-07] MEDS: Pantoprazole 40 MG VIAL IVP SCH (09:13)
--- NOTE | 2019-01-07 09:43 | Internal Med Progress Note ---
Hospitalist Progress Note - Encounter Date of Encounter: 01/07/19 Time of Encounter: 09:43 - Exam Vitals: Temp Pulse Resp BP Pulse Ox 98.0 F 69 14 144/79 94 01/07/19 07:45 01/07/19 07:45 01/07/19 07:45 01/07/19 07:45 01/07/19 07:45 - Assessment and Plan (1) Stroke-like symptoms Current Visit: Yes Status: Acute (2) Postoperative ileus Current Visit: Yes Status: Acute (3) Hypokalemia due to excessive gastrointestinal loss of potassium Current Visit: Yes Status: Acute (4) Nausea & vomiting Current Visit: Yes Status: Acute (5) Abdominal pain Current Visit: Yes Status: Acute (6) Leukocytosis Current Visit: Yes Status: Acute (7) Weakness Current Visit: Yes Status: Acute (8) Acute urinary retention Current Visit: Yes Status: Acute (9) Thyroid disease Current Visit: Yes Status: Chronic (10) DVT prophylaxis Current Visit: Yes Status: Acute - Time Spent with Patient Total time spent is greater than 50% in coordination of care (as documented) at patient's floor/unit and/or counseling patient: Internal Medicine: Result - Labs CBC & Chem 7: 01/07/19 01:22 01/07/19 01:22 Labs: Short CBC 01/07/19 Range/Units 01:22 WBC 14.4 H (4.3-11.1) K/mcL Hgb 13.6 (12.9-16.9) g/dL Hct 40.6 (37.5-50.1) % Plt Count 292 (140-400) K/mcL Neutrophils # 11.9 H (1.6-8.9) K/mcL BMP 01/07/19 01:22 Sodium 135 L Potassium 3.4 L Chloride 104 Carbon Dioxide 22 L BUN 17 Creatinine 0.97 Glucose 125 H Calcium 8.8 Liver Function 01/07/19 Range/Units 01:22 Total Bilirubin 2.2 H (0.3-1.0) mg/dL AST 31 (13-39) Units/L ALT 106 H (7-52) Units/L Alkaline Phosphatase 101 (34-104) Units/L Albumin 3.2 L (3.5-5.7) g/dL Urine 01/07/19 Range/Units 05:32 Urine Color Dark Yellow (Yellow) Urine Clarity Turbid A (Clear) Urine pH 5.5 (5.0-8.0) pH Units Ur Specific [place] > 1.030 H (1.010-1.025) Urine Protein 100 H (Neg-Trace) mg/dL Urine Glucose (UA) Normal (Normal) mg/dL - Impressions Impressions Abdomen X-Ray 01/06/19 10:02 IMPRESSION: Intraperitoneal free air consistent with history of recent abdominal surgery. Status post cholecystectomy. Moderately distended loops of small bowel with some air in the colon as well. Findings suggest a moderate ileus more likely than a distal small bowel obstruction. D/ / Conor Eugene MD / Conor Eugene MD Interpreting Provider: Conor Eugene MD Chest X-Ray 01/06/19 10:04 IMPRESSION: Free air under the diaphragm consistent with recent abdominal surgery with history of cholecystectomy. Likely associated bibasilar atelectasis and small bilateral pleural effusions. D/ / 01/06/2019 10:43:45 Conor Eugene MD / tash levi Interpreting Provider: Conor Eugene MD Head CT 01/06/19 19:52 IMPRESSION: No acute intracranial abnormality. D/ / Lashay Garrett MD / Lashay Garrett MD Interpreting Provider: Lashay Garrett MD Brain MRI 01/06/19 21:41 IMPRESSION: No acute abnormality. Specifically, there is no acute infarct D/ / Alexander Vargas / Alexander Vargas Interpreting Provider: Alexander Vargas X-Ray 01/07/19 09:08 IMPRESSION: 1. Enteric catheter with side port above the GE junction. This should be advanced at least 6 cm to ensure that the side port is well below the GE junction. 2. Small bilateral pleural effusions and bibasilar atelectasis. 3. Gas-filled loops of bowel in the upper abdomen may represent ileus. Intraperitoneal gas is postsurgical. The findings were sent to the [facility]iology [facility] at 9:11 am on 01/07/2019to be communicated to a licensed caregiver. D/ / 01/07/2019 09:12:31 Ruiz Godinez MD / dex Interpreting Provider: Ruiz Godinez MD Consult Discharge Plan - Plan Instructions: Urinary Retention in Men (GEN), Laparoscopic Cholecystectomy (DC), Ileus (GEN) Additional Instructions: General Surgical Discharge Instructions 1. No pushing, pulling, or lifting greater than 15 lbs for 4 weeks. 2. You may remove your dressings and shower beginning today, but no tub baths, soaking, or swimming for 2 weeks. 3. No driving for until cleared by rehab. 4. Apply ice 20 minutes every hour that you are awake to your abdomen and Take ibuprofen every 8 hours for discomfort. If this does not relieve discomfort, you may take the as needed Percocet. Eat a small snack with pain medication as this will help reduce the risk of nausea. Take narcotics as directed. Do not take more narcotics then directed and do not share your narcotics with any other person. Do not drink alcohol while on narcotics. You can take the Zofran/ondan setron if needed for nausea or with a dose of narcotics to prevent nausea. 5. Take stool softeners (Colace) or a water based laxative (Miralax) while taking narcotics. You may hold for loose stools. 6. Report any fevers greater than 100.5F, increase abdominal discomfort, drainage that looks like pus, increased redness or pain at the surgical site, or any vomiting. 7. Report any pain in the calves, shortness of breath, or rapid heartbeat. 8. Follow-up in the office as directed. 9. If you were prescribed antibiotics, do not stop them without talking to your provider. Referrals: [facility] [Provider Group] (Acute urinary retention; Mosqueda in place) Eugene Glass MD [Partnered Physician] - 01/20/19 8:55 am Danyel Ramos DO [Primary Care Provider] - 01/14/19 11:30 am () (4) Nausea & vomiting Qualifiers: Vomiting type: cyclical vomiting Vomiting Intractability: non-intractable Qualified Code(s): G43.A0 - Cyclical vomiting, not intractable (5) Abdominal pain Qualifiers: Abdominal location: epigastric Qualified Code(s): R10.13 - Epigastric pain (6) Leukocytosis Qualifiers: Leukocytosis type: other Qualified Code(s): D72.828 - Other elevated white blood cell count
--- NOTE | 2019-01-07 11:11 | AcuteCareSurgery Progress Note ---
Date of Encounter: 01/07/19 Time of Encounter: 11:08 - Assessment and Plan (1) Biliary colic Current Visit: Yes Status: Acute Patient is status post laparoscopic cholecystectomy postop day 3. Now with ileus. Manage conservatively as mentioned below. (2) Postoperative ileus Current Visit: Yes Status: Acute Patient with NG tube will continue for now. Will hold Phenergan continue with Zofran and Reglan as needed. Await return of bowel function. (3) Stroke-like symptoms Current Visit: Yes Status: Acute Appreciate hospitalist consultation. CT scan of the head and MRI of the brain both were negative. Likely culprit was the IV Phenergan which has been held. We will continue to observe. Subjective Patient reports: other (Patient sitting up in chair. States he is having some bloating sensation but really does not complain of any nausea or vomiting. His daughter states that she is not having the pain when he had prior to his gallbladder surgery.) Objective Vital Signs - Last 8 Hours Temp Pulse Resp BP Pulse Ox 01/07/19 07:45 98.0 F 69 14 144/79 94 Intake and Output 01/06/19 01/07/19 01/07/19 23:59 07:59 15:59 Intake Total 200 / 740 Output Total 750 / 1350 Balance -550 / -610 Intake: IV Fluids 200 / 500 Ofirmev 1,000 mg/100 ml 1,000 200 / 500 mg In 100 ml @ 400 mls/hr IVPB Q6HR [facility] Rx#:[id number] Output: Catheter 750 / 1350 Other: Weight 69.7 kg Blood Glucose* 106 Patient Weight 01/07/19 23:59 Weight 69.7 kg - General physical appearance well nourished, no distress - Abdomen Abdomen: Present: bowel sounds present, soft, tender (Mild tenderness to palpation in the upper abdomen.) - Labs 01/07/19 01:22 01/07/19 01:22 Diabetes panel 01/07/19 Range/Units 01:22 Sodium 135 L (136-145) mEq/L Potassium 3.4 L (3.5-5.1) mEq/L Chloride 104 (98-107) mEq/L Carbon Dioxide 22 L (23-29) mEq/L BUN 17 (8-23) mg/dL Creatinine 0.97 (0.70-1.30) mg/dL Glucose 125 H (70-105) mg/dL Calcium 8.8 (8.6-10.3) mg/dL AST 31 (13-39) Units/L ALT 106 H (7-52) Units/L Alkaline Phosphatase 101 (34-104) Units/L Albumin 3.2 L (3.5-5.7) g/dL Thyroid panel 01/07/19 Range/Units 01:22 TSH 15.538 H (0.340-5.600) mcIU/mL Calcium panel 01/07/19 Range/Units 01:22 Calcium 8.8 (8.6-10.3) mg/dL Albumin 3.2 L (3.5-5.7) g/dL Pituitary panel 01/07/19 Range/Units 01:22 Sodium 135 L (136-145) mEq/L Potassium 3.4 L (3.5-5.1) mEq/L Chloride 104 (98-107) mEq/L Carbon Dioxide 22 L (23-29) mEq/L BUN 17 (8-23) mg/dL Creatinine 0.97 (0.70-1.30) mg/dL Glucose 125 H (70-105) mg/dL Calcium 8.8 (8.6-10.3) mg/dL TSH 15.538 H (0.340-5.600) mcIU/mL Adrenal panel 01/07/19 Range/Units 01:22 Sodium 135 L (136-145) mEq/L Potassium 3.4 L (3.5-5.1) mEq/L Chloride 104 (98-107) mEq/L Carbon Dioxide 22 L (23-29) mEq/L BUN 17 (8-23) mg/dL Creatinine 0.97 (0.70-1.30) mg/dL Glucose 125 H (70-105) mg/dL Calcium 8.8 (8.6-10.3) mg/dL Total Bilirubin 2.2 H (0.3-1.0) mg/dL AST 31 (13-39) Units/L ALT 106 H (7-52) Units/L Alkaline Phosphatase 101 (34-104) Units/L Albumin 3.2 L (3.5-5.7) g/dL Consult Discharge Plan - Plan Instructions: Urinary Retention in Men (GEN), Laparoscopic Cholecystectomy (DC), Ileus (GEN) Additional Instructions: General Surgical Discharge Instructions 1. No pushing, pulling, or lifting greater than 15 lbs for 4 weeks. 2. You may remove your dressings and shower beginning today, but no tub baths, soaking, or swimming for 2 weeks. 3. No driving for until cleared by rehab. 4. Apply ice 20 minutes every hour that you are awake to your abdomen and Take ibuprofen every 8 hours for discomfort. If this does not relieve discomfort, you may take the as needed Percocet. Eat a small snack with pain medication as this will help reduce the risk of nausea. Take narcotics as directed. Do not take more narcotics then directed and do not share your narcotics with any other person. Do not drink alcohol while on narcotics. You can take the Zofran/ondansetron if needed for nausea or with a dose of narcotics to prevent nausea. 5. Take stool softeners (Colace) or a water based laxative (Miralax) while taking narcotics. You may hold for loose stools. 6. Report any fevers greater than 100.5F, increase abdominal discomfort, drainage that looks like pus, increased redness or pain at the surgical site, or any vomiting. 7. Report any pain in the calves, shortness of breath, or rapid heartbeat. 8. Follow-up in the office as directed. 9. If you were prescribed antibiotics, do not stop them without talking to your provider. Referrals: [facility] [Provider Group] (Acute urinary retention; Mosqueda in place) Eugene Glass MD [Partnered Physician] - 01/20/19 8:55 am Danyel Ramos DO [Primary Care Provider] - 01/14/19 11:30 am ()
--- NOTE | 2019-01-07 11:27 | Event Note ---
Date of Encounter: 01/07/19 Time of Encounter: 11:25 Patient was seen and examined earlier this morning by hospitalist services after consult for strokelike symptoms CT and MRI of head and brain were negative for anything acute-he appears to be his neurological baseline with no focal deficits noted. He does complain of some bloating NG is patent and draining clear green fluid. No nausea or vomiting at this time pain is currently controlled daughter states that pain is much improved from initial presentation. We will continue t o monitor neurological status
[2019-01-07] MEDS: Docusate Oral Soln 100 MG/10 ML UDC GTUBE SCH ×2 (15:33→20:32)
--- NOTE | 2019-01-07 21:38 | Electrocardiograph Report ---
[address] [address] Test Date: 2019-01-07 Pat Name: Armando Mueller Department: [id number] Room: 3B44 Gender: M Contingents Supervisor: : 1940 Requested By: Tom Zamora Order Number: [id number] Reading MD: Sharlene Sullivan Measurements Intervals Boelus Rate: 71 P: 40 UT: 184 QRS: -35 QRSD: 91 T: 34 QT: 400 QTc: 422 Interpretive Statements SINUS RHYTHM LEFT ATRIAL ENLARGEMENT [-0.15mV P WAVE IN V1/V2] MARKED LEFT AXIS DEVIATION [QRS AXIS < -30] POSSIBLE RIGHT VENTRICULAR CONDUCTION DELAY [RSR (QR) IN V1/V2] NONSPECIFIC T-WAVE ABNORMALITY Electronically Signed On 01-07-2019 21:37:14 EDT by Sharlene Sullivan
[2019-01-08] MEDS: Metoclopramide 10 MG/2 ML VIAL IVP SCH ×4 (03:37→20:23)
[2019-01-08] MEDS: *HR* Heparin 5,000 UNIT/ML VIAL SQ SCH ×2 (05:39→17:42)
[2019-01-08] MEDS: Acetaminophen IV 1,000 MG/100 ML INFUS..BTL IVPB SCH ×2 (05:40→10:29)
[2019-01-08] MEDS: 0.9 % Sodium Chloride 1,000 ML IVC SCH ×3 (05:41→23:39)
[2019-01-08 08:00] LABS: Basophils % 0.2 %; Eosinophils # 0.1 K/mcL (0.0-0.6); Eosinophils % 1.4 %; Hematocrit 34.9 % (37.5-50.1); Immature Granulocytes % 0.6 % (0-4); Lymphocytes # 1.1 K/mcL (0.6-4.6); Lymphocytes % 10.9 %; Mean Corpuscular HGB Conc 32.4 g/dL (31.6-35.5); Mean Corpuscular Hemoglobin 31.7 pg (28.0-33.3); Mean Platelet Volume 11.2 fL (9.4-12.4); Monocytes # 0.9 K/mcL (0.0-1.3); Monocytes % 8.8 %; Neutrophils # 7.6 K/mcL (1.6-8.9); Platelet Count 271 K/mcL (140-400); Red Blood Count 3.56 M/mcL (4.19-5.50); Red Cell Distribution Width 13.7 % (11.5-14.5); Segmented Neutrophils % 78.1 %; White Blood Count 9.8 K/mcL (4.3-11.1)
[2019-01-08 08:11] LABS: Blood Urea Nitrogen 23 mg/dL (8-23); Calcium 8.2 mg/dL (8.6-10.3); Carbon Dioxide 21 mEq/L (23-29); Chloride 109 mEq/L (98-107); Glucose 85 mg/dL (70-105); Osmolality,Calculated 289 (280-300); Potassium 3.3 mEq/L (3.5-5.1); Sodium 138 mEq/L (136-145)
[2019-01-08 08:17] LABS: Hemoglobin 11.3 g/dL (12.9-16.9)
--- NOTE | 2019-01-08 08:19 | Internal Med Progress Note ---
Hospitalist Progress Note - Encounter Date of Encounter: 01/08/19 Time of Encounter: 08:19 - Subjective Interval History: Patient was seen and examined at bedside currently sitting up in a chair encourage patient to ambulate as well as incentive spirometry. He is able to pour proximally 750 mL. Nasogastric tube will be pulled per surgery and patient will attempt oral intake today. Awaiting acceptance to [facility] for rehabilitation- according to case assembler patient may be ready to go Saturday or Saturday - Exam Vitals: Temp Pulse Resp BP Pulse Ox 98.3 F 67 16 119/56 91 01/08/19 06:51 01/08/19 06:51 01/08/19 06:51 01/08/19 06:51 01/08/19 06:51 Exam: Skin: Free of rash and discoloration. Eyes: Sclera is white. There is no discharge from eyes. ENMT: Oral/pharyngeal mucosa is normal in appearance. There is no discharge from nose or ears. Respiratory: Normal breath sounds with no crackles and wheezes bilaterally. CV: Heart is regular with no gallop or murmur. GI: Abdomen is slightly distended soft with no palpable mass or visceromegaly. : There is no tenderness in patient's flanks bilaterally. Neuro exam: He has good strength in upper and lower extremities. He has normal eye movements. Psychiatric: He has normal affect. His thought process is appropriate to the situation. - Assessment and Plan (1) Stroke-like symptoms Current Visit: Yes Status: Acute Assessment and Plan: Acute CVA-type sx concerning for possible stroke. Effects of IVP Phenergan versus neurological basis. On exam, patient has no one-sided weakness, focal deficits, or pronator drift. Speech mildly slurred. Stat CT of the head/brain without contrast showed no acute intracranial abnormality. Stat MRI of the head/brain w/o contrast also showed no acute abnormality, specifically there is no acute infarct. Family concerned that these sx were exacerbated by pts. stress level regarding recent surgery and abdominal pain. Family is hesitant for pt. to have anti-anxiolytics d/t the fact that he takes no pain or anxiety medications historically. Will add low-dose of Ativan only if warranted and discussed w/family. Consider adding Neurology consult if pts. sx persist or worsen. Patient is high risk for further morbidity and complications d/t post-surgical status, neurologic changes requiring advanced imaging and testing to r/o n eurologic basis, current leukocytosis, current nausea and vomiting requiring NG tube and nothing by mouth status, postoperative ileus, acute weakness, and acute urinary retention. Inpatient. 01/08 No neurological deficits noted at this time. Cranial nerves II through XII intact no focal deficits able to follow simple commands. Patient states that he does feel weak however he is deconditioned Suspect effects of IV Phenergan may be contributing factor to her previous symptoms (2) Postoperative ileus Current Visit: Yes Status: Acute Assessment and Plan: Acute abdominal ileus according to 2 view x-ray of the abdomen on 01/06. Patient was on clear liquid diet but continued having N/V. NPO for now w/advance as tolerated. 0.9 IV fluids running at 125/hr currently. Consider CT of the abdomen/pelvis if sx persist or worsen. Monitor I&O. 01/08 Management per surgery expect removal of nasogastric tube today and advancement of diet we will continue to monitor-patient is passing gas abdomen soft (3) Hypokalemia due to excessive gastrointestinal loss of potassium Current Visit: Yes Status: Acute Assessment and Plan: Acute hypokalemia w/potassium of 3.4 likely d/t gastrointestinal loss. 20 mEq K rider with lidocaine ordered. Cardiac monitoring. EKG ordered. Monitor patient, VS, and f/u labs. Control N/V w/ Zofran and Reglan. 01/08 We will continue to monitor and replace as needed (4) Nausea & vomiting Current Visit: Yes Status: Acute Assessment and Plan: Acute nausea and vomiting s/p laparoscopic cholecystectomy. Clear liquid diet DCd and NPO ordered w/advance as tolerated. Phenergan DCd d/t pts. AMS/CVA-type sx post-administration. Phenergan added to pts. allergy list. Zofran and Reglan ordered. Monitor I&O. Pt. receiving 0.9 IV fluids @ 125/hr. 01/08 Appears to be improving-continue with Zofran and Reglan avoid Phenergan at this time continue with IV fluids Surgery Will attempt to remove NG today and encourage oral intake (5) Abdominal pain Current Visit: Yes Status: Acute (6) Leukocytosis Current Visit: Yes Status: Acute (7) Weakness Current Visit: Yes Status: Acute Assessment and Plan: Acute weakness, likely d/t poor intake in combination w/nausea and vomiting. Patient receiving 0.9 IV fluids @ 125/hr. Clear liquids DCd and NPO d/t re current N/V. Will advance diet as tolerated. Falls/safety precautions and up with assist. Nutrition consult for PO supplementation. 01/08 No focal weakness noted patient is currently deconditioned evaluated by PT and OT recommending inpatient rehabilitation (8) Acute urinary retention Current Visit: Yes Status: Acute Assessment and Plan: Acute urinary retention post-surgery. Mosqueda catheter inserted for retention. Monitor I&O. (9) Thyroid disease Current Visit: Yes Status: Chronic Assessment and Plan: Hx of chronic thyroid disease. Continue pts. Synthroid. (10) DVT prophylaxis Current Visit: Yes Status: Acute Assessment and Plan: Heparin SQ Q12 HR for DVT prophylaxis. Monitor pt. for signs of bleeding. - Time Spent with Patient Total time spent is greater than 50% in coordination of care (as documented) at patient's floor/unit and/or counseling patient: Internal Medicine: Result - Labs CBC & Chem 7: 01/08/19 07:37 01/08/19 07:37 Labs: Short CBC 01/08/19 Range/Units 07:37 WBC 9.8 (4.3-11.1) K/mcL Hgb 11.3 L D (12.9-16.9) g/dL Hct 34.9 L (37.5-50.1) % Plt Count 271 (140-400) K/mcL Neutrophils # 7.6 (1.6-8.9) K/mcL BMP 01/07/19 01/08/19 20:48 07:37 Sodium 138 Potassium 3.4 L 3.3 L Chloride 109 H Carbon Dioxide 21 L BUN 23 Glucose 85 Calcium 8.2 L - Impressions Impressions KUB X-Ray 01/07/19 09:08 IMPRESSION: 1. Enteric catheter with side port above the GE junction. This should be advanced at least 6 cm to ensure that the side port is well below the GE junction. 2. Small bilateral pleural effusions and bibasilar atelectasis. 3. Gas-filled loops of bowel in the upper abdomen may represent ileus. Intraperitoneal gas is postsurgical. The findings were sent to the Radiology Results [facility] at 9:11 am on 01/07/2019to be communicated to a licensed caregiver. D/ / 01/07/2019 09:12:31 Ruiz Godinez MD / dex Interpreting Provider: Ruiz Godinez MD X-Ray 01/07/19 11:28 IMPRESSION: 1. Enteric catheter tip overlies the body of the stomach. Side hole is distal to the GE junction. D/ / Wesley Hammer MD / Wesley Hammer MD Interpreting Provider: Wesley Hammer MD Consult Discharge Plan - Plan Instructions: Urinary Retention in Men (GEN), Laparoscopic Cholecystectomy (DC), Ileus (GEN) Additional Instructions: General Surgical Discharge Instructions 1. No pushing, pulling, or lifting greater than 15 lbs for 4 weeks. 2. You may remove your dressings and shower beginning today, but no tub baths, soaking, or swimming for 2 weeks. 3. No driving for until cleared by rehab. 4. Apply ice 20 minutes every hour that you are awake to your abdomen and Take ibuprofen every 8 hours for discomfort. If this does not relieve discomfort, you may take the as needed Percocet. Eat a small snack with pain medication as this will help reduce the risk of nausea. Take narcotics as directed. Do not take more narcotics then directed and do not share your narcotics with any other person. Do not drink alcohol while on narcotics. You can take the Zofran/ondansetron if needed for nausea or with a dose of narcotics to prevent nausea. 5. Take stool softeners (Colace) or a water based laxative (Miralax) while taking narcotics. You may hold for loose stools. 6. Report any fevers greater than 100.5F, increase abdominal discomfort, drain age that looks like pus, increased redness or pain at the surgical site, or any vomiting. 7. Report any pain in the calves, shortness of breath, or rapid heartbeat. 8. Follow-up in the office as directed. 9. If you were prescribed antibiotics, do not stop them without talking to your provider. Referrals: [facility] [Provider Group] (Acute urinary retention; Mosqueda in place) Eugene Glass MD [Partnered Physician] - 01/20/19 8:55 am Danyel Ramos DO [Primary Care Provider] - 01/14/19 11:30 am () (4) Nausea & vomiting Qualifiers: Vomiting type: cyclical vomiting Vomiting Intractability: non-intractable Qualified Code(s): G43.A0 - Cyclical vomiting, not intractable (5) Abdominal pain Qualifiers: Abdominal location: epigastric Qualified Code(s): R10.13 - Epigastric pain (6) Leukocytosis Qualifiers: Leukocytosis type: other Qualified Code(s): D72.828 - Other elevated white blood cell count
[2019-01-08 09:11] LABS: BUN/Creatinine Ratio 27 (6-26); eGFR For African Americans > 60 (> 60); eGFR For Non-African Americans > 60 (> 60)
--- NOTE | 2019-01-08 09:13 | AcuteCareSurgery Progress Note ---
<Mahnaz Montaño - Last Filed: 01/08/19 09:14> Date of Encounter: 01/08/19 Time of Encounter: 07:15 - Assessment and Plan (1) Biliary colic Current Visit: Yes Status: Acute Date of procedure: 01/04/19 Pre-op diagnosis: Biliary colic Post-op diagnosis: other (Acute cholecystitis) Procedure: Laparoscopic cholecystectomy Anesthesia: GETA Surgeon: Joshua Russ POD #4 as above. Pathology noted acute and chronic cholecystitis with mucosal erosion and cholelithiasis, portion of a benign lymph node. He reports bowel movements x3 yesterday and that his abdomen is feeling improved. Postop ileus is resolving. He is having BMs and passing flatus. Will d/c NG and resume CLD. Plan: Continue supportive care and discomfort management while awaiting full return of bowel function Continue G.I. and DVT prophylaxis Incentive spirometry 10 times every hour while awake Out of bed to chair TID, do not offer meal trays while in the bed Activity as tolerated w/PT/OT Apply ice 20 minutes on 20 minutes off as needed d/c planning in the next 24-48 hours pending clinical course. He is going to SNF and therefore does not have to be returned to baseline to d/c (2) Postoperative ileus Current Visit: Yes Status: Acute See above (3) Weakness Current Visit: Yes Status: Acute see above Hospitalist following; appreciate their recommendations. OK to resume PO meds for chronic conditions (will defer to hospitalist) (4) Acute urinary retention Current Visit: Yes Status: Acute Continue Gonzales catheter continue Flomax (no dose given 01/07 2/2 NG) follow-up with urology as outpatient Subjective Patient reports: no new complaints, feels better, pain is less, voiding w/o difficulty (per gonzales), bowel movement (x3 01/07), afebrile Objective Vital Signs - Last 8 Hours Temp Pulse Resp BP Pulse Ox 01/08/19 06:51 98.3 F 67 16 119/56 91 01/08/19 03:12 98.1 F 66 16 122/64 91 Intake and Output 01/07/19 01/08/19 01/08/19 23:59 07:59 15:59 Intake Total 1300 / 2400 3362 / 3362 Output Total 750 / 1650 Balance 550 / 750 3362 / 3362 Intake: IV Fluids 1300 / 2400 3362 / 3362 0.9 % Sodium Chloride 1,000 ML 1000 / 2000 3000 / 3000 @ 50 mls/hr IVC .Q20H [facility] Rx#: [id number] Ofirmev 1,000 mg/100 ml 1,000 300 / 400 100 / 100 mg In 100 ml @ 400 mls/hr IVPB Q6HR [facility] Rx#:[id number] Potassium Chloride 20 MEQ 262 / 262 Xylocaine 2 ML In 0.9 % Sodium Chloride 250 ML @ 131 mls/hr IVPB ONCE ONE Rx#:[id number] Output: Urine 300 / 300 Catheter 450 / 450 Other: Stool Size Moderate Stool Consistency loose Stool Color Green # Bowel Movements 1 Weight 70.1 kg Blood Glucose* 91 Patient Weight 01/08/19 23:59 Weight 70.1 kg - General physical appearance no distress, moderate pain (controlled) - ENT normal nares, atraumatic, normocephalic - Neck Neck exam: trachea midline - Respiratory clear to auscultation (decreased resp effort) - Cardiovascular Cardiovascular exam: Present: RRR - Abdomen Abdomen: Present: bowel sounds present, soft, distended (mildly), tender (expected postoperative) - Incision Incision: Present: clean and dry, intact - Integumentary no rash - Neurologic normal sensation - Musculoskeletal normal posture - Psychiatric oriented to time, oriented to person, oriented to place - Labs 01/08/19 07:37 01/08/19 07:37 Diabetes panel 01/07/19 01/08/19 Range/Units 20:48 07:37 Sodium 138 (136-145) mEq/L Potassium 3.4 L 3.3 L (3.5-5.1) mEq/L Chloride 109 H (98-107) mEq/L Carbon Dioxide 21 L (23-29) mEq/L BUN 23 (8-23) mg/dL Creatinine 0.85 (0.70-1.30) mg/dL Glucose 85 (70-105) mg/dL Calcium 8.2 L (8.6-10.3) mg/dL Calcium panel 01/08/19 Range/Units 07:37 Calcium 8.2 L (8.6-10.3) mg/dL Pituitary panel 01/07/19 01/08/19 Range/Units 20:48 07:37 Sodium 138 (136-145) mEq/L Potassium 3.4 L 3.3 L (3.5-5.1) mEq/L Chloride 109 H (98-107) mEq/L Carbon Dioxide 21 L (23-29) mEq/L BUN 23 (8-23) mg/dL Creatinine 0.85 (0.70-1.30) mg/dL Glucose 85 (70-105) mg/dL Calcium 8.2 L (8.6-10.3) mg/dL Adrenal panel 01/07/19 01/08/19 Range/Units 20:48 07:37 Sodium 138 (136-145) mEq/L Potassium 3.4 L 3.3 L (3.5-5.1) mEq/L Chloride 109 H (98-107) mEq/L Carbon Dioxide 21 L (23-29) mEq/L BUN 23 (8-23) mg/dL Creatinine 0.85 (0.70-1.30) mg/dL Glucose 85 (70-105) mg/dL Calcium 8.2 L (8.6-10.3) mg/dL Consult Discharge Plan - Plan Instructions: Urinary Retention in Men (GEN), Laparoscopic Cholecystectomy (DC), Ileus (GEN) Additional Instructions: General Surgical Discharge Instructions 1. No pushing, pulling, or lifting greater than 15 lbs for 4 weeks. 2. You may remove your dressings and shower beginning today, but no tub baths, soaking, or swimming for 2 weeks. 3. No driving for until cleared by rehab. 4. Apply ice 20 minutes every hour that you are awake to your abdomen and Take ibuprofen every 8 hours for discomfort. If this does not relieve discomfort, you may take the as needed Percocet. Eat a small snack with pain medication as this will help reduce the risk of nausea. Take narcotics as directed. Do not take more narcotics then directed and do not share your narcotics with any other person. Do not drink alcohol while on narcotics. You can take the Zofran/ondansetron if needed for nausea or with a dose of narcotics to prevent nausea. 5. Take stool softeners (Colace) or a water based laxative (Miralax) while taking narcotics. You may hold for loose stools. 6. Report any fevers greater than 100.5F, increase abdominal discomfort, drainage that looks like pus, increased redness or pain at the surgical site, or any vomiting. 7. Report any pain in the calves, shortness of breath, or rapid heartbeat. 8. Follow-up in the office as directed. 9. If you were prescribed antibiotics, do not stop them without talking to your provider. Referrals: [facility] [Provider Group] (Acute urinary retention; Gonzales in place) Eugene Glass MD [Partnered Physician] - 01/20/19 8:55 am Danyel Ramos DO [Primary Care Provider] - 01/14/19 11:30 am () <Eugene Glass - Last Filed: 01/08/19 16:55> Date of Encounter: 01/08/19 Objective Vital Signs - Last 8 Hours Temp Pulse Resp BP Pulse Ox 01/08/19 15:55 98.0 F 52 14 125/63 92 01/08/19 12:09 97.5 F L 77 16 117/68 97 Intake and Output 01/08/19 01/08/19 01/08/19 07:59 15:59 23:59 Intake Total 3362 / 3462 100 / 3462 Output Total 350 / 350 Balance 3362 / 3112 100 / 3112 -350 / 3112 Intake: IV Fluids 3362 / 3462 100 / 3462 0.9 % Sodium Chloride 1,000 ML 3000 / 3000 @ 50 mls/hr IVC .Q20H [facility] Rx#: [id number] Ofirmev 1,000 mg/100 ml 1,000 100 / 200 100 / 200 mg In 100 ml @ 400 mls/hr IVPB Q6HR [facility] Rx#:[id number] Potassium Chloride 20 MEQ 262 / 262 Xylocaine 2 ML In 0.9 % Sodium Chloride 250 ML @ 131 mls/hr IVPB ONCE ONE Rx#:[id number] Output: Catheter 350 / 350 Urethral (Gonzales) 350 / 350 Other: Weight 70.1 kg Patient Weight 01/08/19 23:59 Weight 70.1 kg - Labs 01/08/19 07:37 01/08/19 07:37 Diabetes panel 01/07/19 01/08/19 Range/Units 20:48 07:37 Sodium 138 (136-145) mEq/L Potassium 3.4 L 3.3 L (3.5-5.1) mEq/L Chloride 109 H (98-107) mEq/L Carbon Dioxide 21 L (23-29) mEq/L BUN 23 (8-23) mg/dL Creatinine 0.85 (0.70-1.30) mg/dL Glucose 85 (70-105) mg/dL Calcium 8.2 L (8.6-10.3) mg/dL Calcium panel 01/08/19 Range/Units 07:37 Calcium 8.2 L (8.6-10.3) mg/dL Pituitary panel 01/07/19 01/08/19 Range/Units 20:48 07:37 Sodium 138 (136-145) mEq/L Potassium 3.4 L 3.3 L (3.5-5.1) mEq/L Chloride 109 H (98-107) mEq/L Carbon Dioxide 21 L (23-29) mEq/L BUN 23 (8-23) mg/dL Creatinine 0.85 (0.70-1.30) mg/dL Glucose 85 (70-105) mg/dL Calcium 8.2 L (8.6-10.3) mg/dL Adrenal panel 01/07/19 01/08/19 Range/Units 20:48 07:37 Sodium 138 (136-145) mEq/L Potassium 3.4 L 3.3 L (3.5-5.1) mEq/L Chloride 109 H (98-107) mEq/L Carbon Dioxide 21 L (23-29) mEq/L BUN 23 (8-23) mg/dL Creatinine 0.85 (0.70-1.30) mg/dL Glucose 85 (70-105) mg/dL Calcium 8.2 L (8.6-10.3) mg/dL - Attending Attestation I have personally performed a face to face evaluation on this patient. I have reviewed and agree with the care plan. History and Exam by me shows: The patient is seen and evaluated on morning rounds with the acute care surgery team. He has profound postoperative ileus after laparoscopic cholecystectomy. Bowel movements we will remove the nasogastric tube today and advance the patient's diet. Continue close clinical observation Eugene Glass MD FACS
[2019-01-08] MEDS: Pantoprazole 40 MG VIAL IVP SCH (10:05)
[2019-01-08] MEDS: Docusate Oral Soln 100 MG/10 ML UDC GTUBE SCH (10:05)
[2019-01-08] MEDS ORDERED: Potassium Chloride 40 MEQ, Lidocaine 1% 2 ML in D5% in Water 500 ML IVPB ONE (13:18)
[2019-01-08] MEDS ORDERED: Potassium Chloride 40 MEQ, Lidocaine 1% 2 ML in 0.9 % Sodium Chloride 500 ML IVPB ONE (14:30)
--- NOTE | 2019-01-08 14:47 | Acute Care Surgery Event Note ---
Date of Encounter: 01/08/19 Time of Encounter: 14:43 Peer to Peer with ([employer]) Dr. Shepherd. Pt's auth denied 2/2 latest notes they had was dated 01/06/2019 at which time pt had moderate ileus and required NG. Updated that pt's ileus is resolving, NG discontinued, + bowel function has returned. With updated medical information, Dr. Shepherd approved wing bed placement and reports auth would be good for 5 days. Anticipate pt will be ready for d/c to swing bed tomorrow or Saturday.
[2019-01-08] MEDS ORDERED: Acetaminophen 325 MG TABLET PO PRN (16:28)
[2019-01-08] MEDS ORDERED: Ibuprofen 800 MG TABLET PO PRN (16:28)
[2019-01-08] MEDS: Docusate Oral Soln 100 MG/10 ML UDC PO SCH (20:24)
[2019-01-09] MEDS: Metoclopramide 10 MG/2 ML VIAL IVP SCH ×4 (03:27→20:49)
[2019-01-09 04:11] LABS: Basophils % 0.5 %; Eosinophils # 0.2 K/mcL (0.0-0.6); Eosinophils % 1.9 %; Hematocrit 32.8 % (37.5-50.1); Hemoglobin 10.7 g/dL (12.9-16.9); Immature Granulocytes % 0.6 % (0-4); Lymphocytes # 1.1 K/mcL (0.6-4.6); Lymphocytes % 12.4 %; Mean Corpuscular HGB Conc 32.6 g/dL (31.6-35.5); Mean Corpuscular Hemoglobin 31.8 pg (28.0-33.3); Mean Corpuscular Volume 97.3 fL (83.0-100.0); Monocytes # 0.9 K/mcL (0.0-1.3); Monocytes % 10.4 %; Neutrophils # 6.6 K/mcL (1.6-8.9); Platelet Count 264 K/mcL (140-400); Red Blood Count 3.37 M/mcL (4.19-5.50); Red Cell Distribution Width 13.8 % (11.5-14.5); Segmented Neutrophils % 74.2 %; White Blood Count 8.9 K/mcL (4.3-11.1)
[2019-01-09 04:35] LABS: BUN/Creatinine Ratio 28 (6-26); Blood Urea Nitrogen 22 mg/dL (8-23); Calcium 8.2 mg/dL (8.6-10.3); Carbon Dioxide 18 mEq/L (23-29); Chloride 113 mEq/L (98-107); Glucose 87 mg/dL (70-105); Osmolality,Calculated 289 (280-300); Potassium 3.4 mEq/L (3.5-5.1); Sodium 138 mEq/L (136-145); eGFR For African Americans > 60 (> 60); eGFR For Non-African Americans > 60 (> 60)
[2019-01-09] MEDS: *HR* Heparin 5,000 UNIT/ML VIAL SQ SCH ×2 (05:33→17:10)
[2019-01-09] MEDS: Docusate Oral Soln 100 MG/10 ML UDC PO SCH ×2 (08:50→20:49)
[2019-01-09] MEDS: Pantoprazole 40 MG VIAL IVP SCH (08:52)
--- NOTE | 2019-01-09 10:26 | Discharge Summary ---
<Mahnaz Montaño - Last Filed: 01/09/19 10:43> Orders not resulted at time of discharge: Pending orders 01/07/19 01:22 Culture,Blood [BC] AM 0400 Date of Encounter: 01/09/19 Time of Encounter: 07:55 - Discharge Diagnosis (1) Biliary colic Priority: Primary Status: Resolved (2) Postoperative ileus Priority: Secondary Status: Resolved (3) Weakness Priority: Secondary Status: Acute (4) Acute urinary retention Priority: Secondary Status: Acute Comments: Mosqueda cath has been in place since 01/05/2019; can trial d/c at rehab (5) Stroke-like symptoms Priority: Secondary Status: Resolved Comments: 05/17 promethazine General Surgery Exam Initial Vital Signs Temp Pulse Resp BP Pulse Ox 97.3 F L 47 16 130/58 95 01/04/19 07:28 01/04/19 07:28 01/04/19 07:28 01/04/19 07:28 01/04/19 07:28 - General physical appearance no distress, no pain (at rest) - ENT atraumatic, normocephalic - Neck trachea midline - Respiratory other (decreased respiratory effort; decreased breath sounds) - Cardiovascular Cardiovascular exam: Present: RRR - Abdomen Abdomen general surgery: Present: bowel sounds present, soft, tender (expected postoperative). Absent: tympanic, distended - Incision Incision: Present: clean and dry, intact - Integumentary Integumentary general surgery: Present: warm and dry - Neurologic Present: normal coordination, normal sensation - Musculoskeletal Present: normal posture, other (generalized deconditioning noted) - Psychiatric Psychiatric general surgery: Present: A&Ox3 - Hospital Course Hospital course: Mr. Mueller is a 78 year old male who presented on 01/04/2019 with complaints of right upper quadrant pain. He was taken to the operating room for acute cholecystitis where he underwent a laparoscopic cholecystectomy by Dr. Russ. His postoperative course was complicated by poor patient participation, acute urinary retention, postoperative ileus, and a brief episode of mental status changes. He was strongly encouraged on multiple occasions to improve his participation in recovery which he eventually did and has since improved. A Mosqueda catheter and Flomax were initiated for his acute urinary retention. His postoperative ileus was short-lived. He did have an NG tube for less than 48 hours and received IV Reglan. He is now tolerating a diet and having bowel function. He did have an episode of acute mental status/possible stroke like symptoms. His CT and MRI were negative. He quickly returned to baseline and this was attributed to promethazine. This has been added to his allergy list. We will begin discharge planning to [facility] with a follow-up in the office in approximately 2 weeks. - Time Spent with Patient Total time spent providing and/or coordinating discharge services: Less than 30 minutes - Discharge Medications Prescriptions: New Tamsulosin [Flomax] 0.4 mg PO DAILY capsule Acetaminophen [Tylenol] 650 mg PO Q6HR PRN tablet PRN Reason: Mild Pain Ibuprofen [Motrin] 800 mg PO Q8HR PRN tablet PRN Reason: Moderate Pain Docusate [Colace] 100 mg PO BID udc Polyethylene Glycol 3350 [MiraLAX] 17 gm PO DAILY powd.pack Continued Levothyroxine [Synthroid] 100 mcg PO 0630 Multivitamin [One Daily Essential] 1 tab PO DAILY Saccharomyces Boulardii [Florastor] 250 mg PO DAILY Cholecalciferol (D-3) [Vitamin D] 5,000 unit PO DAILY Home Medications: Levothyroxine [Synthroid] 100 mcg PO 0630 03/14/16 [History] Cholecalciferol (D-3) [Vitamin D] 5,000 unit PO DAILY 01/05/19 [History] Multivitamin [One Daily Essential] 1 tab PO DAILY 01/05/19 [History] Saccharomyces Boulardii [Florastor] 250 mg PO DAILY 01/05/19 [History] Acetaminophen [Tylenol] 650 mg PO Q6HR PRN tablet 01/09/19 [Rx] Docusate [Colace] 100 mg PO BID udc 01/09/19 [Rx] Ibuprofen [Motrin] 800 mg PO Q8HR PRN tablet 01/09/19 [Rx] Polyethylene Glycol 3350 [MiraLAX] 17 gm PO DAILY powd.pack 01/09/19 [Rx] Tamsulosin [Flomax] 0.4 mg PO DAILY capsule 01/09/19 [Rx] Allergies/Adverse Reactions: Allergy/AdvReac Type Severity Reaction Status Date / Time Penicillins [PCN] Allergy See Verified 01/04/19 04:27 Comments Sulfa (Sulfonamide Allergy See Verified 01/04/19 04:27 Antibiotics) Comments Phenergan AdvReac Weakness Uncoded 01/07/19 02:21 Date of admission: 01/06/19 15:52 Primary care physician: Danyel Ramos DO Consults: 01/05/19 11:31 Consult to Occupational Therapy [CONS] Stat Comment: Evaluate, develop and implement POC Reason for Consult: mobilization and d.c. planning. pt lives alone and is s/p lap jason Does patient have active BEDREST order?: No Is patient medically & hemodynamically stable?: Yes Patient assessed for mobility or mobilized this visit?: No Consult to Physical Therapy [CONS] Stat Comment: Evaluate, develop and implement POC Reason for Consult: mobilization and d.c. planning. pt lives alone and is s/p lap jason Does patient have active BEDREST order?: No Is patient medically & hemodynamically stable?: Yes Patient assessed for mobility or mobilized this visit?: No 01/05/19 11:32 Consult to Grey Roll Man [CONS] Routine Reason for SW Consult: possible placement vs HHC. Lives alone 01/06/19 18:33 Consult to Hospitalist [CONS] Stat Consulting Provider: Hospitalist [place] Reason for Consult: acute neurologic change with slurred speech. Case d/w Dr. Garcia Garrett Time Notified: 18:35 Call Completed: Yes 01/06/19 18:37 Consult to Hospitalist [CONS] Routine Consulting Provider: Hospitalist Radha Reason for Consult: Neuro workup Call Completed: Yes 01/07/19 02:05 Consult to Nutrition [CONS] Routine Comment: Consulting Provider: NUTRITION Reason for Dietary Consult: PO Supplementation Discharging clinician: Gila Posey (David Montaño, BED MACHINE OPERATOR-QUALITY COMPLIANCE MANAGER) Anticipated date of discharge: 01/09/19 Labs on day of discharge: Labs from last 24 hours 01/09/19 01/09/19 01/07/19 03:37 03:37 22:36 WBC 8.9 RBC 3.37 L Hgb 10.7 L Hct 32.8 L MCV 97.3 MCH 31.8 MCHC 32.6 RDW 13.8 Plt Count 264 MPV 11.0 Immature Gran % 0.6 Seg Neutrophils % 74.2 Lymphocytes % 12.4 Monocytes % 10.4 Eosinophils % 1.9 Basophils % 0.5 Neutrophils # 6.6 Lymphocytes # 1.1 Monocytes # 0.9 Eosinophils # 0.2 Basophils # 0.0 Sodium 138 Potassium 3.4 L Chloride 113 H Carbon Dioxide 18 L BUN 22 Creatinine 0.78 Est GFR ( Amer) > 60 Est GFR (Non-Af Amer) > 60 BUN/Creatinine Ratio 28 H Glucose 87 POC Glucose 91 Calculated Osmolality 289 Calcium 8.2 L 01/07/19 17:51 WBC RBC Hgb Hct MCV MCH MCHC RDW Plt Count MPV Immature Gran % Seg Neutrophils % Lymphocytes % Monocytes % Eosinophils % Basophils % Neutrophils # Lymphocytes # Monocytes # Eosinophils # Basophils # Sodium Potassium Chloride Carbon Dioxide BUN Creatinine Est GFR ( Amer) Est GFR (Non-Af Amer) BUN/Creatinine Ratio Glucose POC Glucose 91 Calculated Osmolality Calcium Preliminary micro results at discharge 01/07/19 01:22 Blood Culture - Preliminary Peripheral Venipuncture Culture is incubating and being continuously monitored for growth. Final report to follow. 01/07/19 01:22 Blood Culture - Preliminary Peripheral Venipuncture Culture is incubating and being continuously monitored for growth. Final report to follow. - Impressions ITS Impressions Abdomen X-Ray 01/06/19 10:02 IMPRESSION: Intraperitoneal free air consistent with history of recent abdominal surgery. Status post cholecystectomy. Moderately distended loops of small bowel with some air in the colon as well. Findings suggest a moderate ileus more likely than a distal small bowel obstruction. D/ / Conor Eugene MD / Conor Eugene MD Interpreting Provider: Conor Eugene MD Chest X-Ray 01/06/19 10:04 IMPRESSION: Free air under the diaphragm consistent with recent abdominal surgery with history of cholecystectomy. Likely associated bibasilar atelectasis and small bilateral pleural effusions. D/ / 01/06/2019 10:43:45 Conor Eugene MD / mary Interpreting Provider: Conor Eugene MD Head CT 01/06/19 19:52 IMPRESSION: No acute intracranial abnormality. D/ / Lashay Garrett MD / Lashay Garrett MD Interpreting Provider: Lashay Garrett MD Brain MRI 01/06/19 21:41 IMPRESSION: No acute abnormality. Specifically, there is no acute infarct D/ / Alexander Vargas / Alexander Vargas Interpreting Provider: Alexander Vargas X-Ray 01/07/19 09:08 IMPRESSION: 1. Enteric catheter with side port above the GE junction. This should be advanced at least 6 cm to ensure that the side port is well below the GE junction. 2. Small bilateral pleural effusions and bibasilar atelectasis. 3. Gas-filled loops of bowel in the upper abdomen may represent ileus. Intraperitoneal gas is postsurgical. The findings were sent to the Radiology Results Communication [facility] at 9:11 am on 01/07/2019to be communicated to a licensed caregiver. D/ / 01/07/2019 09:12:31 Ruiz Godinez MD / dex Interpreting Provider: Ruiz Godinez MD X-Ray 01/07/19 11:28 IMPRESSION: 1. Enteric catheter tip overlies the body of the stomach. Side hole is distal to the GE junction. D/ / Wesley Hammer MD / Wesley Hammer MD Interpreting Provider: Wesley Hammer MD - Patient Status Disposition: Transfer Inpatient Rehab Fac Condition: Good Functional capacity at discharge: uses cane/walker Overall status at discharge: patient is progressing back to baseline - Discharge Instructions Instructions: Urinary Retention in Men (GEN), Laparoscopic Cholecystectomy (DC), Ileus (GEN) Follow Up With: Eugene Glass MD [Partnered Physician] - 01/20/19 8:55 am Danyel Ramos DO [Primary Care Provider] - 01/14/19 11:30 am () [facility] [Provider Group] (Acute urinary retention; Mosqueda in place) Additional Instructions: General Surgical Discharge Instructions 1. No pushing, pulling, or lifting greater than 15 lbs for 4 weeks. 2. You may remove your dressings and shower beginning today, but no tub baths, soaking, or swimming for 2 weeks. 3. No driving for until cleared by rehab. 4. Apply ice 20 minutes every hour that you are awake to your abdomen and Take ibuprofen every 8 hours for discomfort. If this does not relieve discomfort, you may take the as needed Percocet. Eat a small snack with pain medication as this will help reduce the risk of nausea. Take narcotics as directed. Do not take more narcotics then directed and do not share your narcotics with any other person. Do not drink alcohol while on narcotics. You can take the Zofran/ondansetron if needed for nausea or with a dose of narcotics to prevent nausea. 5. Take stool softeners (Colace) or a water based laxative (Miralax) while taking narcotics. You may hold for loose stools. 6. Report any fevers greater than 100.5F, increase abdominal discomfort, drainage that looks like pus, increased redness or pain at the surgical site, or any vomiting. 7. Report any pain in the calves, shortness of breath, or rapid heartbeat. 8. Follow-up in the office as directed. 9. If you were prescribed antibiotics, do not stop them without talking to your provider. - Diet and Activity Activity: as per physical therapy, increase activity as tolerated, resume usual activities as tolerated Diet: advance to your usual diet <Gila Frost - Last Filed: 01/09/19 11:09> Orders not resulted at time of discharge: Pending orders 01/07/19 01:22 Culture,Blood [BC] AM 0400 Date of Encounter: 01/09/19 General Surgery Exam Initial Vital Signs Temp Pulse Resp BP Pulse Ox 97.3 F L 47 16 130/58 95 01/04/19 07:28 01/04/19 07:28 01/04/19 07:28 01/04/19 07:28 01/04/19 07:28 - Hospital Course Hospital course: Mr. Mueller is a 78 year old male - Time Spent with Patient Total time spent providing and/or coordinating discharge services: Date of admission: 01/06/19 15:52 Primary care physician: Danyel Ramos DO Consults: 01/05/19 11:31 Consult to Occupational Therapy [CONS] Stat Comment: Evaluate, develop and implement POC Reason for Consult: mobilization and d.c. planning. pt lives alone and is s/p lap jason Does patient have active BEDREST order?: No Is patient medically & hemodynamically stable?: Yes Patient assessed for mobility or mobilized this visit?: No Consult to Physical Therapy [CONS] Stat Comment: Evaluate, develop and implement POC Reason for Consult: mobilization and d.c. planning. pt lives alone and is s/p lap jason Does patient have active BEDREST order?: No Is patient medically & hemodynamically stable?: Yes Patient assessed for mobility or mobilized this visit?: No 01/05/19 11:32 Consult to Grey Roll Man [CONS] Routine Reason for SW Consult: possible placement vs HHC. Lives alone 01/06/19 18:33 Consult to Hospitalist [CONS] Stat Consulting Provider: Hospitalist [place] Reason for Consult: acute neurologic change with slurred speech. Case d/w Dr. Garcia Garrett Time Notified: 18:35 Call Completed: Yes 01/06/19 18:37 Consult to Hospitalist [CONS] Routine Consulting Provider: Hospitalist Radha Reason for Consult: Neuro workup Call Completed: Yes 01/07/19 02:05 Consult to Nutrition [CONS] Routine Comment: Consulting Provider: NUTRITION Reason for Dietary Consult: PO Supplementation Labs on day of discharge: Labs from last 24 hours 01/09/19 01/09/19 01/07/19 03:37 03:37 22:36 WBC 8.9 RBC 3.37 L Hgb 10.7 L Hct 32.8 L MCV 97.3 MCH 31.8 MCHC 32.6 RDW 13.8 Plt Count 264 MPV 11.0 Immature Gran % 0.6 Seg Neutrophils % 74.2 Lymphocytes % 12.4 Monocytes % 10.4 Eosinophils % 1.9 Basophils % 0.5 Neutrophils # 6.6 Lymphocytes # 1.1 Monocytes # 0.9 Eosinophils # 0.2 Basophils # 0.0 Sodium 138 Potassium 3.4 L Chloride 113 H Carbon Dioxide 18 L BUN 22 Creatinine 0.78 Est GFR ( Amer) > 60 Est GFR (Non-Af Amer) > 60 BUN/Creatinine Ratio 28 H Glucose 87 POC Glucose 91 Calculated Osmolality 289 Calcium 8.2 L 01/07/19 17:51 WBC RBC Hgb Hct MCV MCH MCHC RDW Plt Count MPV Immature Gran % Seg Neutrophils % Lymphocytes % Monocytes % Eosinophils % Basophils % Neutrophils # Lymphocytes # Monocytes # Eosinophils # Basophils # Sodium Potassium Chloride Carbon Dioxide BUN Creatinine Est GFR ( Amer) Est GFR (Non-Af Amer) BUN/Creatinine Ratio Glucose POC Glucose 91 Calculated Osmolality Calcium Preliminary micro results at discharge 01/07/19 01:22 Blood Culture - Preliminary Peripheral Venipuncture Culture is incubating and being continuously monitored for growth. Final report to follow. 01/07/19 01:22 Blood Culture - Preliminary Peripheral Venipuncture Culture is incubating and being continuously monitored for growth. Final report to follow. - Impressions ITS Impressions Abdomen X-Ray 01/06/19 10:02 IMPRESSION: Intraperitoneal free air consistent with history of recent abdominal surgery. Status post cholecystectomy. Moderately distended loops of small bowel with some air in the colon as well. Findings suggest a moderate ileus more likely than a distal small bowel obstruction. D/ / Conor Eugene MD / Conor Eugene MD Interpreting Provider: Conor Eugene MD Chest X-Ray 01/06/19 10:04 IMPRESSION: Free air under the diaphragm consistent with recent abdominal surgery with history of cholecystectomy. Likely associated bibasilar atelectasis and small bilateral pleural effusions. D/ / 01/06/2019 10:43:45 Conor Eugene MD / mary Interpreting Provider: Conor Eugene MD Head CT 01/06/19 19:52 IMPRESSION: No acute intracranial abnormality. D/ / Lashay Garrett MD / Lashay Garrett MD Interpreting Provider: Lashay Garrett MD Brain MRI 01/06/19 21:41 IMPRESSION: No acute abnormality. Specifically, there is no acute infarct D/ / Alexander Vargas / Alexander Vargas Interpreting Provider: Alexander Vargas X-Ray 01/07/19 09:08 IMPRESSION: 1. Enteric catheter with side port above the GE junction. This should be advanced at least 6 cm to ensure that the side port is well below the GE junction. 2. Small bilateral pleural effusions and bibasilar atelectasis. 3. Gas-filled loops of bowel in the upper abdomen may represent ileus. Intraperitoneal gas is postsurgical. The findings were sent to the Radiology Results Communication Center at 9:11 am on 01/07/2019to be communicated to a licensed caregiver. D/ / 01/07/2019 09:12:31 Ruiz Goidnez MD / dex Interpreting Provider: Ruiz Godinez MD X-Ray 01/07/19 11:28 IMPRESSION: 1. Enteric catheter tip overlies the body of the stomach. Side hole is distal to the GE junction. D/ / Wesley Hammer MD / Wesley Hammer MD Interpreting Provider: Wesley Hammer MD - Attending Attestation I examined this patient and my medical decision-making was reviewed with the QUALITY COMPLIANCE MANAGER. I agree with the documented findings, disposition and treatment plan as described to the extent set forth below. Pt recovering from post-op ileus following Lap jason. He is eating more and appetite is slowly improving. Pt will need ECF for rehab. See DC plan for f/u instructions.
--- NOTE | 2019-01-09 10:43 | Physician Discharge Referral ---
ExtendedCare Referral Info Transfer To: [facility] Provider in Charge: Dr. Gila Montes Provider in Charge after Transfer: Other (Collision Repair Technician or clinical rehab liaison) Institutional Level of Care: Skilled - Diagnosis (1) Biliary colic Priority: Primary Status: Resolved (2) Postoperative ileus Priority: Secondary Status: Resolved (3) Weakness Priority: Secondary Status: Acute (4) Acute urinary retention Priority: Secondary Status: Acute Expected Duration of Placement: <30 days Prognosis: Fair Aware of Diagnosis: Patient, Family Aware of Prognosis: Patient, Family - Transfer Medications Home Medications: Levothyroxine [Synthroid] 100 mcg PO 0630 03/14/16 [History] Cholecalciferol (D-3) [Vitamin D] 5,000 unit PO DAILY 01/05/19 [History] Multivitamin [One Daily Essential] 1 tab PO DAILY 01/05/19 [History] Saccharomyces Boulardii [Florastor] 250 mg PO DAILY 01/05/19 [History] Acetaminophen [Tylenol] 650 mg PO Q6HR PRN tablet 01/09/19 [Rx] Docusate [Colace] 100 mg PO BID udc 01/09/19 [Rx] Ibuprofen [Motrin] 800 mg PO Q8HR PRN tablet 01/09/19 [Rx] Polyethylene Glycol 3350 [MiraLAX] 17 gm PO DAILY powd.pack 01/09/19 [Rx] Tamsulosin [Flomax] 0.4 mg PO DAILY capsule 01/09/19 [Rx] Allergies/Adverse Reactions: Allergy/AdvReac Type Severity Reaction Status Date / Time Penicillins [PCN] Allergy See Verified 01/04/19 04:27 Comments Sulfa (Sulfonamide Allergy See Verified 01/04/19 04:27 Antibiotics) Comments Phenergan AdvReac Weakness Uncoded 01/07/19 02:21 - Respiratory Orders Smoking Cessation: Smoking cessation has been advised. For more information, call the [place] Tobacco Quit Line at 8-403-LKJQ-NOW. - Ancillary Orders May use pressure relief devices daily prn - Advance Directives Living Will: No Power of Laborer Yard for Health Care: No Code Status: Full Code - Mobility Orders Ambulate - Rehabiliation Orders Rehab Potential: Fair Rehab Orders: Evaluation for Physical Therapy, Evaluation for Home Health Outreach Coordinator apy - Treatments Skin tear care topically daily PRN per policy List/Other: Mosqueda catheter continuation/discontinue per [facility] rehab discretion. Catheter has been in place since 01/06/2019. He has received 3 doses of Flomax since that date. General Surgical Discharge Instructions 1. No pushing, pulling, or lifting greater than 15 lbs for 4 weeks. 2. You may remove your dressings and shower beginning today, but no tub baths, soaking, or swimming for 2 weeks. 3. No driving for until cleared by rehab. 4. Apply ice 20 minutes every hour that you are awake to your abdomen and Take ibuprofen every 8 hours for discomfort. If this does not relieve discomfort, you may take the as needed Percocet. Eat a small snack with pain medication as this will help reduce the risk of nausea. Take narcotics as directed. Do not take more narcotics then directed and do not share your narcotics with any other person. Do not drink alcohol while on narcotics. You can take the Zofran/ondansetron if needed for nausea or with a dose of narcotics to prevent nausea. 5. Take stool softeners (Colace) or a water based laxative (Miralax) while taking narcotics. You may hold for loose stools. 6. Report any fevers greater than 100.5F, increase abdominal discomfort, drainage that looks like pus, increased redness or pain at the surgical site, or any vomiting. 7. Report any pain in the calves, shortness of breath, or rapid heartbeat. 8. Follow-up in the office as directed. 9. If you were prescribed antibiotics, do not stop them without talking to your provider. - Diet Orders Regular CERTIFICATION: I certify that the transfer of the above named patient to an Extended Care Facility is necessary for the continuing treatment of the diagnosis listed. The above information is true and accurate reflection of patient's current condition. Confidential - Redisclosure prohibited without a patient's written consent.
[2019-01-09] MEDS ORDERED: Furosemide 20 MG/2 ML VIAL IVP ONE (10:49)
--- NOTE | 2019-01-09 15:28 | Internal Med Progress Note ---
Hospitalist Progress Note - Encounter Date of Encounter: 01/09/19 Time of Encounter: 15:26 - Subjective Interval History: Seen and examined at bedside. Patient is new to me, information obtained from chart review and patient report. Patient says he is feeling better today. Passing some gas and had a small bowel movement this morning. He is reluctant to take Mosqueda catheter out. Family at bedside this afternoon and have multiple questions regarding discharge. Family was in the impression patient will be discharged sometime over the weekend or possibly Saturday. Discharge currently on hold until patient/family seen by Gen. surgery - Exam Vitals: Temp Pulse Resp BP Pulse Ox 97.7 F 46 16 131/62 95 01/09/19 07:59 01/09/19 07:59 01/09/19 07:59 01/09/19 07:59 01/09/19 07:59 Exam: Skin: Free of rash and discoloration. Eyes: Sclera is white. There is no discharge from eyes. ENMT: Oral/pharyngeal mucosa is normal in appearance. There is no discharge from nose or ears. Respiratory: Normal breath sounds with no crackles and wheezes bilaterally. CV: Heart is regular with no gallop or murmur. GI: Abdomen is slightly distended soft with no palpable mass or visceromegaly. : There is no tenderness in patient's flanks bilaterally. Neuro exam: He has good strength in upper and lower extremities. He has normal eye movements. Psychiatric: He has normal affect. His thought process is appropriate to the situation. - Assessment and Plan (1) Acute cholecystitis Current Visit: Yes Status: Acute Assessment and Plan: presented with RUQ ABD pain. Evaluated by Gen. surgery who noted intractable pain secondary to biliary colic. S/p laparoscopic cholecystectomy on 01/04/[address] Russ. Postoperative management per primary service (2) Postoperative ileus Current Visit: Yes Status: Resolved Assessment and Plan: Acute abdominal ileus according to 2 view x-ray of the abdomen on 01/06. Patient was on clear liquid diet but continued having N/V. NPO for now w/advance as tolerated. 0.9 IV fluids running at 125/hr currently. Consider CT of the abdomen/pelvis if sx persist or worsen. Monitor I&O. 01/08 Management per surgery expect removal of nasogastric tube today and advancement of diet we will continue to monitor-patient is passing gas abdomen soft 01/09 Tolerating clear liquid diet. NG removed. Management per primary service (3) Stroke-like symptoms Current Visit: Yes Status: Resolved Assessment and Plan: Acute CVA-type sx concerning for possible stroke. Effects of IVP Phenergan versus neurological basis. On exam, patient has no one-sided weakness, focal deficits, or pronator drift. Speech mildly slurred. Stat CT of the head/brain without contrast showed no acute intracranial abnormality. Stat MRI of the head/brain w/o contrast also showed no acute abnormality, specifically there is no acute infarct. Family concerned that these sx were exacerbated by pts. stress level regarding recent surgery and abdominal pain. Family is hesitant for pt. to have anti-anxiolytics d/t the fact that he takes no pain or anxiety medications historically. Will add low-dose of Ativan only if warranted and discussed w/family. Consider adding Neurology consult if pts. sx persist or worsen. Patient is high risk for further morbidity and complications d/t post-surgical status, neurologic changes requiring advanced imaging and testing to r/o neurologic basis, current leukocytosis, current nausea and vomiting requiring NG tube and nothing by mouth status, postoperative ileus, acute weakness, and acute urinary retention. Inpatient. 01/08 No neurological deficits noted at this time. Cranial nerves II through XII intact no focal deficits able to follow simple commands. Patient states that he does feel weak however he is deconditioned Suspect effects of IV Phenergan may be contributing factor to her previous symptoms 01/09 Remains neurologically intact. (4) Hypokalemia due to excessive gastrointestinal loss of potassium Current Visit: Yes Status: Acute Assessment and Plan: monitor and replace PRN (5) Nausea & vomiting Current Visit: Yes Status: Acute Assessment and Plan: improving-continue with Zofran and Reglan avoid Phenergan (6) Leukocytosis Current Visit: Yes Status: Acute Assessment and Plan: resolved (7) Weakness Current Visit: Yes Status: Acute Assessment and Plan: acute weakness, likely d/t poor intake in combination w/nausea and vomiting. No focal weakness noted patient is currently deconditioned evaluated by PT and OT recommending inpatient rehabilitation (8) Acute urinary retention Current Visit: Yes Status: Acute Assessment and Plan: acute urinary retention post-surgery. Mosqueda catheter inserted for retention. Recommend removing [place] catheter as soon as possible. This can be done here at [facility] or swing bed. (9) Thyroid disease Current Visit: Yes Status: Chronic Assessment and Plan: per hx. Cont home levothyroxine. (10) DVT prophylaxis Current Visit: Yes Status: Acute Assessment and Plan: heparin - Time Spent with Patient Total time spent is greater than 50% in coordination of care (as documented) at patient's floor/unit and/or counseling patient: Internal Medicine: Result - Labs CBC & Chem 7: 01/09/19 03:37 01/09/19 03:37 Labs: Short CBC 01/09/19 Range/Units 03:37 WBC 8.9 (4.3-11.1) K/mcL Hgb 10.7 L (12.9-16.9) g/dL Hct 32.8 L (37.5-50.1) % Plt Count 264 (140-400) K/mcL Neutrophils # 6.6 (1.6-8.9) K/mcL BMP 01/09/19 03:37 Sodium 138 Potassium 3.4 L Chloride 113 H Carbon Dioxide 18 L BUN 22 Creatinine 0.78 Glucose 87 Calcium 8.2 L - Impressions Impressions Chest X-Ray 01/06/19 10:04 IMPRESSION: Free air under the diaphragm consistent with recent abdominal surgery with history of cholecystectomy. Likely associated bibasilar atelectasis and small bilateral pleural effusions. D/ : / 01/06/2019 10:43:45 Conor Eugene MD / mary Interpreting Provider: Conor Eugene MD Consult Discharge Plan - Plan Instructions: Urinary Retention in Men (GEN), Laparoscopic Cholecystectomy (DC), Ileus (GEN) Additional Instructions: General Surgical Discharge Instructions 1. No pushing, pulling, or lifting greater than 15 lbs for 4 weeks. 2. You may remove your dressings and shower beginning today, but no tub baths, soaking, or swimming for 2 weeks. 3. No driving for until cleared by rehab. 4. Apply ice 20 minutes every hour that you are awake to your abdomen and Take ibuprofen every 8 hours for discomfort. If this does not relieve discomfort, you may take the as needed Percocet. Eat a small snack with pain medication as this will help reduce the risk of nausea. Take narcotics as directed. Do not take more narcotics then directed and do not share your narcotics with any other person. Do not drink alcohol while on narcotics. You can take the Zofran/on dansetron if needed for nausea or with a dose of narcotics to prevent nausea. 5. Take stool softeners (Colace) or a water based laxative (Miralax) while taking narcotics. You may hold for loose stools. 6. Report any fevers greater than 100.5F, increase abdominal discomfort, drainage that looks like pus, increased redness or pain at the surgical site, or any vomiting. 7. Report any pain in the calves, shortness of breath, or rapid heartbeat. 8. Follow-up in the office as directed. 9. If you were prescribed antibiotics, do not stop them without talking to your provider. Referrals: [facility] [Provider Group] (Acute urinary retention; Mosqueda in place) Eugene Glass MD [Partnered Physician] - 01/20/19 8:55 am Danyel Ramos DO [Primary Care Provider] - 01/14/19 11:30 am () (5) Nausea & vomiting Qualifiers: Vomiting type: cyclical vomiting Vomiting Intractability: non-intractable Qualified Code(s): G43.A0 - Cyclical vomiting, not intractable (6) Leukocytosis Qualifiers: Leukocytosis type: other Qualified Code(s): D72.828 - Other elevated white blood cell count
--- NOTE | 2019-01-09 16:09 | Acute Care Surgery Event Note ---
Date of Encounter: 01/09/19 Time of Encounter: 15:58 Met with patient, daughters, chargeback specialist and bedside RN regarding discharge to [facility]. As noted, ACS rounded on patient this am (aprox [phone]) and pt found appropriate for d/c to rehab today. Pt updated regarding plans for d/c today after lunch per this AIRPORT SHUTTLE DRIVER at that time and pt stated ok. 1343 today received notification from bedside RN that pt's dtrs were at bedside and would like to discuss discharge. Dtrs state patient called them this am and was concerned about discharge stating he did not feel ready to d/c because "he was told it would be Saturday and now its today so we would just like to discuss why the change of plan." This AIRPORT SHUTTLE DRIVER reviewed with all present that surgery had not suggested Saturday would be the discharge date because he would be evaluated on a daily basis and plan accordingly. Dtrs stated they though it was a hospitalist CAN TENDER who stated he would be leaving Saturday. It appears there had been miscommunication. All present updated that pt is stable for d/c to rehab at this time (with gonzales cath in place, continue flomax and discontinuation of gonzales TBD by rehab providers), diet as tolerated (if he preferred only full liquids and protein supplement this would be fine as long as he was taking sufficient PO), and at which time, pt states, "I'm just not comfortable mentally going today. I feel like I could do much better if I could just stay tonight. I didn't even know I was going." Reminded all of conversation as detailed above and daughter's state pt is intermittently confused. From a surgical standpoint, pt appears ready for d/c to rehab; however he is fearful. If it is possible for transport to be arranged for the am (after breakfast) surgery is agreeable. No surgical assessment will need to be completed in the am as he has been placed for discharge.
[2019-01-10] MEDS: Metoclopramide 10 MG/2 ML VIAL IVP SCH ×2 (02:53→07:56)
[2019-01-10] MEDS: *HR* Heparin 5,000 UNIT/ML VIAL SQ SCH (05:28)
[2019-01-10 06:50] VITALS: BP 143/65
[2019-01-10] MEDS: Docusate Oral Soln 100 MG/10 ML UDC PO SCH (07:56)
[2019-01-10] MEDS: Pantoprazole 40 MG VIAL IVP SCH (07:56)
[2019-01-10] MEDS: Ondansetron 4 MG/2 ML VIAL IVP PRN (08:37)
== END 2019-01-10 12:10 | DRG 418 ==
LOC: 3BNU → SUATTDRO 01-06 15:52
PROVIDERS: ADMIT Surgery; ATTEND Family Medicine